=== PATIENT | female | born 1960 | race Caucasian/White ===

== ENCOUNTER 2020-05-05 10:31 | Emergency (ER) | payer OTHER, SELFPAY ==
--- NOTE | ~2020-05-05 | XR_ITS ---
XR ankle LT min 3V DATE: 05/05/2020 12:08 INDICATION: Pain and swelling for 2 weeks TECHNIQUE: 4 views COMPARISON: None FINDINGS: There is prominent plantar calcaneal enthesopathy. No periostitis or erosive change is asso ciated. No fracture or dislocation of the ankle or disruption of the ankle mortise is detected. IMPRESSION: Plantar calcaneal enthesopathy No fracture or dislocation or bone destruction of the ankle Reviewed, dictated and finalized at location B.
[2020-05-05 10:57] VITALS: BP 135/97; PULSE 88; RESP 16; TEMP 36.7; O2SAT 100
[2020-05-05 12:33] LABS: Uric Acid 4.6 mg/dL (2.5-7.5)
[2020-05-05 12:44] LABS: D Dimer 0.27 ug/mL (<0.48)
[2020-05-05 13:29] VITALS: BP 140/94; PULSE 76; RESP 16; TEMP 36.6; O2SAT 99
--- NOTE | 2020-05-05 20:00 | ED.EXTPRO ---
HPI - Extremity Problem General Chief complaint: Extremity Problem,Nontraumatic Stated complaint: L LEG SWELLING X FEW WEEKS Time Seen by Provider: 05/05/20 11:14 Source: patient Mode of arrival: ambulatory Limitations: no limitations History of Present Illness HPI Narrative: Patient with history of RA, varicosities presents with chief complaint of swelling to the lower left extremity. Patient states that she contacted her primary care regarding the swelling of her left lower BMP and she was instructed that she needs to come to the emergency department for DVT rule out. Patient reports that she is noticed increased swelling to the extremity after working long shifts where she is constantly on her feet. Patient denies current pain to her calf but states a week or 2 ago she did have cramping sensation to her calf to resolve. Patient denies any shortness of breath or chest pain. Patient has past history of DVT, PE. States when she elevates her extremity after work and applies cool compresses the swelling resolves but returns the next day after working. Related Data Allergies Allergy/AdvReac Type Severity Reaction Status Date / Time No Known Allergies Allergy Unknown Verified 03/10/07 11:12 Review of Systems Review of Systems: Narrative: CONSTITUTIONAL: Denies fever, chills, or sweats. EYES: Denies visual changes, redness, or discharge. ENT: Denies rhinorrhea, congestion, sore throat, or otalgia. CARDIOVASCULAR: Denies chest pain, palpitations, or edema. RESPIRATORY: Denies cough or dyspnea. GASTROINTESTINAL: Denies abdominal pain, nausea, vomiting, or diarrhea. GENITOURINARY: Denies dysuria or hematuria. SKIN: Denies rash or itching. MUSCULOSKELETAL: Reports left lower leg swelling denies back pain, joint pain, or myalgia. NEUROLOGIC: Denies headache, numbness, dizziness, or weakness. PSYCHIATRIC: Denies anxiety or depression. [facility] Family History Family History (Updated 09/12/15 @ 10:44 by DOCTOR UNKNOWN) Grandparent Hypertension Family history of elevated blood lipids Carcinoma of colon Other Family history of gastrointestinal disorder Family history of mental disorder Social History Social History Second hand tobacco smoke exposure: No Alcohol intake: current Exam Narrative: Exam Narrative: GENERAL: Well-appearing, well-nourished, and in no acute distress. HEAD: Normocephalic, atraumatic. EYES: PERRLA and EOMI. ENT: Nares clear, no rhinorrhea or epistaxis. Mucous membranes moist. Oropharynx without tonsillar hypertrophy exudate or other lesions. Bilateral TMs pearly ware nonbulging NECK: Supple. No adenopathy or masses CHEST: Clear to auscultation. No respiratory distress. No wheezes rales or rhonchi HEART: Regular rate and rhythm. EXTREMITIES: Normal range of motion. Mild edema to lower left ankle. There is no swelling, erythema or pain to left ankle. Homans sign negative. Varicosities noted to lower extremities. Areas not excessively warm or hot in occurrence with gout. SKIN: Warm, dry, no rash. NEURO: No focal deficits. Alert and oriented x3. PSYCH: Normal mood and affect. Course Vital Signs Vital signs: Vital Signs Temperature 98.0 F 05/05/20 10:57 Pulse Rate 88 05/05/20 10:57 Respiratory Rate 16 05/05/20 10:57 Blood Pressure 135/97 H 05/05/20 10:57 Pulse Oximetry 100 05/05/20 10:57 Temperature 98 F 05/05/20 13:29 Pulse Rate 76 05/05/20 13:29 Respiratory Rate 16 05/05/20 13:29 Blood Pressure 140/94 H 05/05/20 13:29 Pulse Oximetry 99 05/05/20 13:29 MDM - Extremity (Nontraumatic) Lab Data Labs: Lab Results 05/05/20 05/05/20 Range/Units 12:13 12:13 D-Dimer 0.27 (<0.48) ug/mL Uric Acid 4.6 (2.5-7.5) mg/dL Imaging Data Radiologist's impression: ITS Impressions Ankle X-Ray 05/05/20 12:18 IMPRESSION: Plantar calcaneal enthesopathy No fracture or dislocation or bone destruction of the ankle Discharge
== END 2020-05-05 13:30 | disposition home or self-care (01) ==
PROVIDERS: Physician Assistant; Emergency Provider Emergency Medicine; PCP Family Medicine
DX: M25.472 Effusion, left ankle (principal); M06.9 Rheumatoid arthritis, unspecified
CPT/HCPCS: 36415; 73610; 84550; 85380; 99283

== ENCOUNTER 2023-03-01 10:24 | Emergency (ER) | payer OTHER, SELFPAY ==
--- NOTE | ~2023-03-01 | US_ITS ---
EXAMINATION: US pelvic complete w TV DATE: 03/01/2023 12:38 INDICATION: Abnormal vaginal bleeding. TECHNIQUE: Multiple transabdominal and transvaginal sonographic images of the pelvis were obtained. COMPARISON: Ultrasound 06/21/2009 FINDINGS: TRANSABDOMINAL ULTRASOUND: The uterus measures 8.6 x 3.8 x 4.2 cm. There is no free fluid in the pelvis. TRANSVAGINAL ULTRASOUND: The endometrial complex measures 17 mm in thickness. The ovaries are not visualized. IMPRESSION: 1. Thickened endometrial complex. The differential diagnosis includes endometrial hyperplasia, polyp, and carcinoma. Biopsy is recommended. Reviewed, dictated and finalized at location L. IMPRESSION: 1. Thickened endometrial complex. The differential diagnosis includes endometri al hyperplasia, polyp, and carcinoma. Biopsy is recommended.
[2023-03-01 10:25] VITALS: BP 157/96; PULSE 102; RESP 16; TEMP 36.6; O2SAT 98
[2023-03-01 11:49] LABS: Basophils Absolute Auto 0.1 K/mm3 (0.0-0.1); Basophils Percent Auto 1.2 % (0.2-1.2); Eosinophils Absolute Auto 0.3 K/mm3 (0-0.3); Eosinophils Percent Auto 4.2 % (0-4.4); Hematocrit 45.3 % (37.0-47.0); Hemoglobin 14.8 g/dL (12.0-15.0); Immature Granulocyte Absolute 0.02 K/mm3 (0.00-0.031); Immature Granulocyte Percent A 0.3 % (0-0.5); Lymphocytes Percent Auto 18.9 % (18.3-44.2); Mean Corpuscular HGB Conc 32.7 g/dl (32-36); Mean Corpuscular Hemoglobin 30.5 pg (26-34); Mean Corpuscular Volume 93.2 fl (80-100); Mean Platelet Volume 9.1 fl (7.4-10.4); Monocytes Absolute Auto 0.7 K/mm3 (0.1-0.6); Monocytes Percent Auto 8.8 % (2.6-8.5); Neutrophils Absolute Auto 4.9 K/mm3 (1.3-6.7); Neutrophils Percent Auto 66.6 % (45.5-73.1); Platelet Count Result 282 k/mm3 (150-375); Red Blood Count 4.86 M/mm3 (4.2-5.4); Red Cell Distribution Width 13.4 % (11.5-14.5); White Blood Count 7.4 K/mm3 (4.5-10.0)
[2023-03-01 12:00] LABS: Alanine Aminotransferase 21 U/L (6-35); Albumin Level 4.3 g/dL (3.5-5.1); Alkaline Phosphatase 77 U/L (38-126); Anion Gap 5 mmol/L (8-16); Aspartate Amino Transferase 22 U/L (14-36); Bilirubin,Total 0.4 mg/dL (0.2-1.3); Blood Urea Nitrogen 21 mg/dL (7-17); Calcium 9.5 mg/dL (8.4-10.2); Carbon Dioxide 30 mmol/L (22-30); Chloride 105 mmol/L (98-107); Creatine Kinase 122 U/L (30-135); Estimated CRCL calculation 85 ml/min; Estimated Glomerular Filt Rate > 60; Glucose 100 mg/dL (65-110); Potassium 4.5 mmol/L (3.4-5.0); Sodium 140 mmol/L (137-145)
--- NOTE | 2023-03-01 12:53 | ED.FEMALEGU ---
HPI - Female Genitourinary General Chief complaint: Vaginal Bleeding Stated complaint: VAG BLEEDING Time Seen by Provider: 03/01/23 11:08 Source: patient and RN notes reviewed Mode of arrival: ambulatory Limitations: no limitations History of Present Illness HPI Narrative: This is a 62 year old female who presents for evaluation of heaving vaginal bleeding. PAtient states this morning she had heavy vaginal bleeding for 3 hours but it has currently subside. She reports having intermittent vaginal bleeding still. She has vaginal bleeding last month that lasted for half a day. She states sometimes she has vaginal bleeding once a month and sometimes she can go a couple of months without vaginal bleeding. She denies abdominal pain or dizziness. She reports chronic fatigue that is due to long work hours. She denies history of anemia or blood transfusion. She does report history of polymyositis that she had treatment for. Just prior to have vaginal bleeding today she had brief episode of right flank pain that has resolved. Her OBYN was Dr. Vega and she was last seen 6 years ago. Related Data Allergies Allergy/AdvReac Type Severity Reaction Status Date / Time No Known Allergies Allergy Unknown Verified 03/01/23 11:18 Review of Systems Constitutional: Constitutional: Reports fatigue and Denies weakness Cardiovascular: Cardiovascular: Denies syncope, Denies rapid heart rate, Denies irregular heart rhythm, Denies leg edema and Denies dyspnea Respiratory: Respiratory: Denies chest congestion, Denies hemoptysis, Denies excessive phlegm production and Denies dyspnea Gastrointestinal: Gastrointestinal: Denies abdominal pain, Denies hematochezia, Denies diarrhea and Denies vomiting Genitourinary: Genitourinary: Reports abnormal vaginal bleeding, Denies hematuria, Denies dysuria and Reports flank pain Musculoskeletal: Musculoskeletal: Denies joint swelling, Denies loss of height and Denies muscle weakness Neurologic: Denies syncope, Denies focal weakness and Denies weakness PMFSH Past Medical History Medical History (Updated 03/01/23 @ 13:12 by Essie Ovalle MD) Polymyositis Family History Family History (Updated 09/12/15 @ 10:44 by DOCTOR UNKNOWN) Grandparent Hypertension Family history of elevated blood lipids Carcinoma of colon Other Family history of gastrointestinal disorder Family history of mental disorder Social History Social History Second hand tobacco smoke exposure: No Alcohol intake: current Exam Const: General: no acute distress and alert Nutritional Appearance: well nourished Orientation/consciousness: patient oriented x3 HENMT: Head: normal to inspection Mouth: Yes Normal oral and palatal mucosa present, Yes lip normal and Yes moist mucous membranes Eyes: EOM: EOMs intact bilaterally Neck: Neck: normal visual inspection Chest: Chest palpation & inspection: normal inspection of the chest Resp: Effort & Inspection: normal respiratory effort Auscultation: clear to auscultation bilaterally Cardio: Rate: regular rate Rhythm: regular rhythm Heart sounds: no murmurs GI: GI Palp: Yes Soft to palpation, No Tenderness to palpation present (GI), No Guarding due to palpation present (GI) and No Rigid due to palpation Auscultation: normal bowel sounds : Speculum Exam - Cervix: Cervical os closed Other: small amount of dark blood oozing from cervix, no clots Back/Spine/Pelvis: Back: no CVA tenderness Skin: General skin exam: normal color Rashes: no rashes Wounds: no wounds Neuro: General: patient oriented x3, moves all extremities and CN's II-XI intact bilaterally Cranial nerves: Yes Nystagmus not present Speech: normal speech Gait exam (Neuro): Normal gait present Extrem: General: normal to inspection Psych: Appearance: grossly normal and well kempt Mental Status: mental status grossly normal Affect: normal
[2023-03-01 13:22] VITALS: PULSE 82; RESP 16; O2SAT 98
== END 2023-03-01 13:23 | disposition home or self-care (01) ==
PROVIDERS: Emergency Provider General Practice; PCP Family Medicine
DX: N93.8 Other specified abnormal uterine and vaginal bleeding (principal); M33.20 Polymyositis, organ involvement unspecified; R93.89 Abnormal findings on diagnostic imaging of other specified body structures
CPT/HCPCS: 36415; 76830; 76856; 80053; 81025; 82550; 85025; 99284

== ENCOUNTER 2023-06-22 08:23 | Outpatient (CLI) | payer OTHER, SELFPAY ==
[2023-06-22 11:43] LABS: Basophils Absolute Auto 0.1 K/mm3 (0.0-0.1); Basophils Percent Auto 1.2 % (0.2-1.2); Eosinophils Absolute Auto 0.3 K/mm3 (0-0.3); Eosinophils Percent Auto 5.9 % (0-4.4); Hematocrit 42.4 % (37.0-47.0); Hemoglobin 13.9 g/dL (12.0-15.0); Immature Granulocyte Absolute 0.01 K/mm3 (0.00-0.031); Immature Granulocyte Percent A 0.2 % (0-0.5); Lymphocytes Absolute Auto 1.34 K/mm3 (0.9-3.2); Lymphocytes Percent Auto 23.9 % (18.3-44.2); Mean Corpuscular HGB Conc 32.8 g/dl (32-36); Mean Corpuscular Hemoglobin 30.3 pg (26-34); Mean Corpuscular Volume 92.4 fl (80-100); Mean Platelet Volume 9.3 fl (7.4-10.4); Monocytes Absolute Auto 0.6 K/mm3 (0.1-0.6); Monocytes Percent Auto 11.1 % (2.6-8.5); Neutrophils Absolute Auto 3.2 K/mm3 (1.3-6.7); Neutrophils Percent Auto 57.7 % (45.5-73.1); Platelet Count Result 254 k/mm3 (150-375); Red Blood Count 4.59 M/mm3 (4.2-5.4); Red Cell Distribution Width 13.2 % (11.5-14.5); White Blood Count 5.6 K/mm3 (4.5-10.0)
[2023-06-22 11:45] LABS: INR 0.9; Prothrombin Time 12.2 Seconds (11.1-14.7)
[2023-06-22 11:46] LABS: Partial Thromboplastin Time 27.5 SECONDS (22.3-36.8)
[2023-06-22 11:52] LABS: Alanine Aminotransferase 22 U/L (6-35); Albumin Level 4.3 g/dL (3.5-5.1); Alkaline Phosphatase 83 U/L (38-126); Anion Gap 3 mmol/L (8-16); Aspartate Amino Transferase 33 U/L (14-36); Bilirubin,Total 0.6 mg/dL (0.2-1.3); Blood Urea Nitrogen 21 mg/dL (7-17); Calcium 9.1 mg/dL (8.4-10.2); Carbon Dioxide 27 mmol/L (22-30); Chloride 105 mmol/L (98-107); Estimated Glomerular Filt Rate > 60; Glucose 111 mg/dL (65-110); Magnesium 2.2 mg/dL (1.6-2.3); Potassium 4.3 mmol/L (3.4-5.0); Sodium 135 mmol/L (137-145)
== END 2023-06-22 08:24 | disposition home or self-care (01) ==
PROVIDERS: PCP Family Medicine
DX: C54.1 Malignant neoplasm of endometrium (principal)
CPT/HCPCS: 36415; 80053; 83735; 85025; 85610; 85730

== ENCOUNTER 2023-07-27 08:07 | Outpatient (CLI) | payer OTHER, SELFPAY ==
[2023-07-27 13:47] LABS: Basophils Absolute Auto 0.1 K/mm3 (0.0-0.1); Basophils Percent Auto 1.5 % (0.2-1.2); Eosinophils Absolute Auto 0.2 K/mm3 (0-0.3); Eosinophils Percent Auto 3.3 % (0-4.4); Hematocrit 44.1 % (37.0-47.0); Hemoglobin 13.9 g/dL (12.0-15.0); Immature Granulocyte Absolute 0.02 K/mm3 (0.00-0.031); Immature Granulocyte Percent A 0.4 % (0-0.5); Lymphocytes Absolute Auto 1.34 K/mm3 (0.9-3.2); Lymphocytes Percent Auto 27.8 % (18.3-44.2); Mean Corpuscular HGB Conc 31.5 g/dl (32-36); Mean Platelet Volume 9.8 fl (7.4-10.4); Monocytes Absolute Auto 0.6 K/mm3 (0.1-0.6); Monocytes Percent Auto 13.1 % (2.6-8.5); Neutrophils Absolute Auto 2.6 K/mm3 (1.3-6.7); Neutrophils Percent Auto 53.9 % (45.5-73.1); Platelet Count Result 244 k/mm3 (150-375); Red Blood Count 4.64 M/mm3 (4.2-5.4); Red Cell Distribution Width 14.1 % (11.5-14.5); White Blood Count 4.8 K/mm3 (4.5-10.0)
[2023-07-27 13:51] LABS: Alanine Aminotransferase 28 U/L (6-35); Albumin Level 4.4 g/dL (3.5-5.1); Alkaline Phosphatase 90 U/L (38-126); Anion Gap 5 mmol/L (8-16); Aspartate Amino Transferase 30 U/L (14-36); Bilirubin,Total 0.6 mg/dL (0.2-1.3); Blood Urea Nitrogen 15 mg/dL (7-17); Calcium 9.5 mg/dL (8.4-10.2); Carbon Dioxide 27 mmol/L (22-30); Chloride 105 mmol/L (98-107); Estimated Glomerular Filt Rate > 60; Glucose 101 mg/dL (65-110); Magnesium 2.4 mg/dL (1.6-2.3); Potassium 4.2 mmol/L (3.4-5.0); Sodium 137 mmol/L (137-145)
[2023-08-02 07:18] LABS: CA-125 15 U/mL (<35)
== END 2023-07-27 08:08 | disposition home or self-care (01) ==
LOC: ANHGOSHLAB 08:11
PROVIDERS: PCP Family Medicine
DX: C54.1 Malignant neoplasm of endometrium (principal)
CPT/HCPCS: 36415; 80053; 83735; 85025; 86304

== ENCOUNTER 2023-08-17 08:18 | Outpatient (CLI) | payer OTHER, SELFPAY ==
[2023-08-17 19:06] LABS: Basophils Absolute Auto 0.1 K/mm3 (0.0-0.1); Basophils Percent Auto 1.4 % (0.2-1.2); Eosinophils Absolute Auto 0.1 K/mm3 (0-0.3); Eosinophils Percent Auto 3.1 % (0-4.4); Hematocrit 42.5 % (37.0-47.0); Hemoglobin 13.6 g/dL (12.0-15.0); Immature Granulocyte Absolute 0.01 K/mm3 (0.00-0.031); Immature Granulocyte Percent A 0.2 % (0-0.5); Lymphocytes Absolute Auto 1.25 K/mm3 (0.9-3.2); Lymphocytes Percent Auto 29.8 % (18.3-44.2); Mean Corpuscular Hemoglobin 30.4 pg (26-34); Mean Corpuscular Volume 94.9 fl (80-100); Mean Platelet Volume 9.4 fl (7.4-10.4); Monocytes Absolute Auto 0.6 K/mm3 (0.1-0.6); Monocytes Percent Auto 15.3 % (2.6-8.5); Neutrophils Absolute Auto 2.1 K/mm3 (1.3-6.7); Neutrophils Percent Auto 50.2 % (45.5-73.1); Platelet Count Result 228 k/mm3 (150-375); Red Blood Count 4.48 M/mm3 (4.2-5.4); Red Cell Distribution Width 14.6 % (11.5-14.5); White Blood Count 4.2 K/mm3 (4.5-10.0)
[2023-08-17 20:21] LABS: Alanine Aminotransferase 27 U/L (6-35); Albumin Level 4.2 g/dL (3.5-5.1); Alkaline Phosphatase 94 U/L (38-126); Anion Gap 7 mmol/L (8-16); Aspartate Amino Transferase 28 U/L (14-36); Bilirubin,Total 0.6 mg/dL (0.2-1.3); Blood Urea Nitrogen 13 mg/dL (7-17); Calcium 9.5 mg/dL (8.4-10.2); Carbon Dioxide 27 mmol/L (22-30); Chloride 104 mmol/L (98-107); Estimated Glomerular Filt Rate > 60; Glucose 105 mg/dL (65-110); Magnesium 2.3 mg/dL (1.6-2.3); Potassium 4.7 mmol/L (3.4-5.0); Sodium 138 mmol/L (137-145)
[2023-08-23 02:01] LABS: CA-125 15 U/mL (<35)
== END 2023-08-17 08:19 | disposition home or self-care (01) ==
LOC: ANHGOSHLAB 08:23
PROVIDERS: PCP Family Medicine
DX: C54.1 Malignant neoplasm of endometrium (principal)
CPT/HCPCS: 36415; 80053; 83735; 85025; 86304

== ENCOUNTER 2023-09-07 08:15 | Outpatient (CLI) | payer OTHER, SELFPAY ==
[2023-09-07 12:33] LABS: Basophils Absolute Auto 0.1 K/mm3 (0.0-0.1); Basophils Percent Auto 1.5 % (0.2-1.2); Eosinophils Absolute Auto 0.1 K/mm3 (0-0.3); Eosinophils Percent Auto 2.5 % (0-4.4); Hematocrit 40.3 % (37.0-47.0); Hemoglobin 13.1 g/dL (12.0-15.0); Immature Granulocyte Absolute 0.01 K/mm3 (0.00-0.031); Immature Granulocyte Percent A 0.3 % (0-0.5); Lymphocytes Absolute Auto 1.28 K/mm3 (0.9-3.2); Lymphocytes Percent Auto 32.2 % (18.3-44.2); Mean Corpuscular HGB Conc 32.5 g/dl (32-36); Mean Corpuscular Hemoglobin 30.8 pg (26-34); Mean Corpuscular Volume 94.8 fl (80-100); Mean Platelet Volume 9.6 fl (7.4-10.4); Monocytes Absolute Auto 0.6 K/mm3 (0.1-0.6); Monocytes Percent Auto 14.6 % (2.6-8.5); Neutrophils Percent Auto 48.9 % (45.5-73.1); Platelet Count Result 246 k/mm3 (150-375); Red Blood Count 4.25 M/mm3 (4.2-5.4); Red Cell Distribution Width 15.6 % (11.5-14.5)
[2023-09-07 12:52] LABS: Alanine Aminotransferase 26 U/L (6-35); Albumin Level 4.1 g/dL (3.5-5.1); Alkaline Phosphatase 98 U/L (38-126); Anion Gap 7 mmol/L (8-16); Aspartate Amino Transferase 32 U/L (14-36); Bilirubin,Total 0.5 mg/dL (0.2-1.3); Blood Urea Nitrogen 14 mg/dL (7-17); Calcium 9.5 mg/dL (8.4-10.2); Carbon Dioxide 27 mmol/L (22-30); Chloride 105 mmol/L (98-107); Estimated Glomerular Filt Rate > 60; Glucose 109 mg/dL (65-110); Magnesium 2.2 mg/dL (1.6-2.3); Potassium 4.5 mmol/L (3.4-5.0); Sodium 139 mmol/L (137-145)
[2023-09-10 04:44] LABS: CA-125 14 U/mL (<35)
== END 2023-09-07 08:16 | disposition home or self-care (01) ==
PROVIDERS: PCP Family Medicine
DX: C54.1 Malignant neoplasm of endometrium (principal)
CPT/HCPCS: 36415; 80053; 83735; 85025; 86304

== ENCOUNTER 2023-10-05 08:03 | Outpatient (CLI) | payer OTHER, SELFPAY ==
[2023-10-05 20:07] LABS: Basophils Absolute Auto 0.1 K/mm3 (0.0-0.1); Basophils Percent Auto 1.6 % (0.2-1.2); Eosinophils Absolute Auto 0.2 K/mm3 (0-0.3); Eosinophils Percent Auto 4.9 % (0-4.4); Hematocrit 42.6 % (37.0-47.0); Hemoglobin 13.3 g/dL (12.0-15.0); Immature Granulocyte Absolute 0.01 K/mm3 (0.00-0.031); Immature Granulocyte Percent A 0.2 % (0-0.5); Lymphocytes Absolute Auto 1.39 K/mm3 (0.9-3.2); Lymphocytes Percent Auto 28.3 % (18.3-44.2); Mean Corpuscular HGB Conc 31.2 g/dl (32-36); Mean Corpuscular Hemoglobin 31.2 pg (26-34); Mean Platelet Volume 9.7 fl (7.4-10.4); Monocytes Absolute Auto 0.6 K/mm3 (0.1-0.6); Monocytes Percent Auto 12.4 % (2.6-8.5); Neutrophils Absolute Auto 2.6 K/mm3 (1.3-6.7); Neutrophils Percent Auto 52.6 % (45.5-73.1); Platelet Count Result 204 k/mm3 (150-375); Red Blood Count 4.26 M/mm3 (4.2-5.4); White Blood Count 4.9 K/mm3 (4.5-10.0)
[2023-10-05 21:44] LABS: Alanine Aminotransferase 35 U/L (6-35); Albumin Level 4.2 g/dL (3.5-5.1); Alkaline Phosphatase 95 U/L (38-126); Anion Gap 9 mmol/L (8-16); Aspartate Amino Transferase 40 U/L (14-36); Bilirubin,Total 0.4 mg/dL (0.2-1.3); Blood Urea Nitrogen 22 mg/dL (7-17); Calcium 9.5 mg/dL (8.4-10.2); Carbon Dioxide 26 mmol/L (22-30); Chloride 101 mmol/L (98-107); Estimated Glomerular Filt Rate > 60; Glucose 90 mg/dL (65-110); Magnesium 2.3 mg/dL (1.6-2.3); Potassium 4.5 mmol/L (3.4-5.0); Sodium 136 mmol/L (137-145)
[2023-10-08 01:53] LABS: CA-125 12 U/mL (<35)
== END 2023-10-05 08:04 | disposition home or self-care (01) ==
LOC: ANHGOSHLAB 08:06
PROVIDERS: PCP Family Medicine
DX: C54.1 Malignant neoplasm of endometrium (principal)
CPT/HCPCS: 36415; 80053; 83735; 85025; 86304

== ENCOUNTER 2023-10-26 08:07 | Outpatient (CLI) | payer OTHER, SELFPAY ==
[2023-10-26 14:04] LABS: Eosinophils Absolute Auto 0.2 K/mm3 (0-0.3); Eosinophils Percent Auto 3.8 % (0-4.4); Hematocrit 38.9 % (37.0-47.0); Hemoglobin 12.3 g/dL (12.0-15.0); Immature Granulocyte Absolute 0.01 K/mm3 (0.00-0.031); Immature Granulocyte Percent A 0.3 % (0-0.5); Mean Corpuscular HGB Conc 31.6 g/dl (32-36); Mean Corpuscular Hemoglobin 31.5 pg (26-34); Mean Corpuscular Volume 99.7 fl (80-100); Mean Platelet Volume 9.8 fl (7.4-10.4); Monocytes Absolute Auto 0.7 K/mm3 (0.1-0.6); Monocytes Percent Auto 17.3 % (2.6-8.5); Neutrophils Absolute Auto 1.8 K/mm3 (1.3-6.7); Neutrophils Percent Auto 44.6 % (45.5-73.1); Platelet Count Result 210 k/mm3 (150-375); Red Cell Distribution Width 15.9 % (11.5-14.5); White Blood Count 3.9 K/mm3 (4.5-10.0)
[2023-10-26 15:34] LABS: Alanine Aminotransferase 28 U/L (6-35); Albumin Level 3.8 g/dL (3.5-5.1); Alkaline Phosphatase 89 U/L (38-126); Anion Gap 5 mmol/L (8-16); Aspartate Amino Transferase 36 U/L (14-36); Bilirubin,Total 0.5 mg/dL (0.2-1.3); Blood Urea Nitrogen 14 mg/dL (7-17); Calcium 9.1 mg/dL (8.4-10.2); Carbon Dioxide 26 mmol/L (22-30); Chloride 106 mmol/L (98-107); Estimated Glomerular Filt Rate > 60; Glucose 99 mg/dL (65-110); Magnesium 2.1 mg/dL (1.6-2.3); Potassium 4.2 mmol/L (3.4-5.0); Sodium 137 mmol/L (137-145)
[2023-10-29 02:57] LABS: CA-125 14 U/mL (<35)
== END 2023-10-26 08:08 | disposition home or self-care (01) ==
LOC: ANHGOSHLAB 08:11
PROVIDERS: PCP Family Medicine
DX: C54.1 Malignant neoplasm of endometrium (principal)
CPT/HCPCS: 36415; 80053; 83735; 85025; 86304

== ENCOUNTER 2023-12-02 08:17 | Outpatient (CLI) | payer OTHER, SELFPAY ==
[2023-12-02 18:55] LABS: Basophils Absolute Auto 0.1 K/mm3 (0.0-0.1); Basophils Percent Auto 1.2 % (0.2-1.2); Eosinophils Absolute Auto 0.3 K/mm3 (0-0.3); Eosinophils Percent Auto 4.9 % (0-4.4); Hematocrit 41.4 % (37.0-47.0); Hemoglobin 13.4 g/dL (12.0-15.0); Immature Granulocyte Absolute 0.01 K/mm3 (0.00-0.031); Immature Granulocyte Percent A 0.2 % (0-0.5); Lymphocytes Absolute Auto 1.46 K/mm3 (0.9-3.2); Lymphocytes Percent Auto 28.9 % (18.3-44.2); Mean Corpuscular HGB Conc 32.4 g/dl (32-36); Mean Corpuscular Hemoglobin 32.5 pg (26-34); Mean Corpuscular Volume 100.5 fl (80-100); Mean Platelet Volume 9.6 fl (7.4-10.4); Monocytes Absolute Auto 0.7 K/mm3 (0.1-0.6); Monocytes Percent Auto 12.8 % (2.6-8.5); Neutrophils Absolute Auto 2.6 K/mm3 (1.3-6.7); Platelet Count Result 254 k/mm3 (150-375); Red Blood Count 4.12 M/mm3 (4.2-5.4); Red Cell Distribution Width 14.4 % (11.5-14.5); White Blood Count 5.1 K/mm3 (4.5-10.0)
== END 2023-12-02 08:18 | disposition home or self-care (01) ==
LOC: ANHGOSHLAB 08:20
PROVIDERS: PCP Family Medicine
DX: C54.1 Malignant neoplasm of endometrium (principal)
CPT/HCPCS: 36415; 85025

== ENCOUNTER 2024-01-04 08:23 | Outpatient (CLI) | payer OTHER, SELFPAY ==
[2024-01-04 12:14] LABS: Basophils Absolute Auto 0.1 K/mm3 (0.0-0.1); Basophils Percent Auto 0.8 % (0.2-1.2); Eosinophils Absolute Auto 0.7 K/mm3 (0-0.3); Eosinophils Percent Auto 11.2 % (0-4.4); Hematocrit 41.8 % (37.0-47.0); Hemoglobin 13.6 g/dL (12.0-15.0); Immature Granulocyte Absolute 0.01 K/mm3 (0.00-0.031); Immature Granulocyte Percent A 0.2 % (0-0.5); Lymphocytes Absolute Auto 0.76 K/mm3 (0.9-3.2); Lymphocytes Percent Auto 12.7 % (18.3-44.2); Mean Corpuscular HGB Conc 32.5 g/dl (32-36); Mean Corpuscular Hemoglobin 32.1 pg (26-34); Mean Corpuscular Volume 98.6 fl (80-100); Mean Platelet Volume 9.7 fl (7.4-10.4); Monocytes Absolute Auto 0.7 K/mm3 (0.1-0.6); Monocytes Percent Auto 11.5 % (2.6-8.5); Neutrophils Absolute Auto 3.8 K/mm3 (1.3-6.7); Neutrophils Percent Auto 63.6 % (45.5-73.1); Platelet Count Result 231 k/mm3 (150-375); Red Blood Count 4.24 M/mm3 (4.2-5.4); Red Cell Distribution Width 13.2 % (11.5-14.5)
[2024-01-04 12:38] LABS: Alanine Aminotransferase 40 U/L (6-35); Albumin Level 4.1 g/dL (3.5-5.1); Alkaline Phosphatase 82 U/L (38-126); Anion Gap 3 mmol/L (4-12); Aspartate Amino Transferase 37 U/L (14-36); Bilirubin,Total 0.3 mg/dL (0.2-1.3); Blood Urea Nitrogen 10 mg/dL (7-17); Calcium 9.7 mg/dL (8.4-10.2); Carbon Dioxide 28 mmol/L (22-30); Chloride 106 mmol/L (98-107); Estimated Glomerular Filt Rate > 60; Glucose 102 mg/dL (65-110); Magnesium 2.1 mg/dL (1.6-2.3); Potassium 4.1 mmol/L (3.4-5.0); Sodium 137 mmol/L (137-145)
[2024-01-07 03:06] LABS: CA-125 9 U/mL (<35)
== END 2024-01-04 08:24 | disposition home or self-care (01) ==
LOC: ANHGOSHLAB 08:25
PROVIDERS: PCP Family Medicine
DX: Z51.11 Encounter for antineoplastic chemotherapy (principal); C54.1 Malignant neoplasm of endometrium
CPT/HCPCS: 36415; 80053; 83735; 85025; 86304

== ENCOUNTER 2024-02-21 06:10 | Day surgery (SDC) | payer OTHER, SELFPAY ==
[2024-02-21] VITALS (14 sets, daily range): BP systolic 106–152; BP diastolic 59–94; PULSE 75–97; RESP 10–18; TEMP 36.6–37.1; O2SAT 96–100
--- NOTE | ~2024-02-21 | CT_ITS ---
EXAMINATION: CT abdomen pelvis w con DATE: 02/21/2024 08:09 INDICATION: Abdominal pain, nausea and vomiting TECHNIQUE: Computed tomography (CT) of the abdomen and pelvis was performed with 100 CC Omnipaque 350 intravenous contrast. Automated exposure control and iterative reconstruction technique were employe d. Exam dose: 1154.41 mGy-cm total exam DLP. COMPARISON: 03/01/2023 pelvic ultrasound examination FINDINGS: Minimal dependent atelectasis at the bases of the lower lobes, minimal atelectasis at the b ase of the lingula. No consolidation at the included lung bases. Normal heart size. Coronary artery calcification. Small sliding hiatal hernia. The liver, gallbladder, bile ducts, spleen, pancreas, pancreatic duct, and adrenal glands and right k idney appear unremarkable. Approximately 10.5 mm hypoenhancing lesion of the posterolateral aspect of the lower pole of the left kidney with attenuation of approximately 37 Hounsfield units. This is indeterminate. No prior examin ations are available for comparison. No urinary tract calculus or hydroureteronephrosis. Status post hysterectomy. The urinary bladder is unremarkable. There is atherosclerotic calcification but normal caliber of the abdominal aorta. No intraperitoneal or retroperitoneal or pelvic mass lesion or adenopathy or ascites is noted. There are multiple diverticula of the sigmoid and descending colon as well as splenic flexure, transv erse colon, hepatic flexure. The appendix measures up to approximately 10.1 mm diameter, with thickening of the wall and periappen diceal mild fat stranding. The findings are consistent with acute appendicitis. Small fat-containing umbilical hernia. There are subcortical cysts and degenerative spurring of the left femoral head consistent with osteoa rthritis. Some joint space narrowing of both hips, left greater than right. Degenerative spurring of the lower thoracic and to a lesser extent lumbar spine. No suspicious osteolytic or osteoblastic lesions. IMPRESSION: Acute appendicitis Diverticulosis of the colon Indeterminate 10.5 mm lesion of lower pole of left kidney; consider MR renal examination or six-month follow-up CT abdomen examination without and with IV contrast material, unless prior CT abdomen exam inations are available for comparison. Small sliding hiatal hernia Status post hysterectomy Reviewed, dictated and finalized at [facility]. Reviewed, dictated and finalized at [facility]. IMPRESSION: Acute appendicitis Diverticulosis of the colon Indeterminate 10.5 mm lesion of lower pole of left kidney; consider MR renal ex amination or six-month follow-up CT abdomen examination without and with IV con trast material, unless prior CT abdomen examinations are available for comparis on. Small sliding hiatal hernia Status post hysterectomy
[2024-02-21 06:33] LABS: Basophils Absolute Auto 0.1 K/mm3 (0.0-0.1); Basophils Percent Auto 0.5 % (0.2-1.2); Eosinophils Absolute Auto 0.4 K/mm3 (0-0.3); Eosinophils Percent Auto 3.6 % (0-4.4); Hematocrit 42.8 % (37.0-47.0); Hemoglobin 14.1 g/dL (12.0-15.0); Immature Granulocyte Absolute 0.03 K/mm3 (0.00-0.031); Immature Granulocyte Percent A 0.3 % (0-0.5); Lymphocytes Absolute Auto 0.83 K/mm3 (0.9-3.2); Lymphocytes Percent Auto 7.6 % (18.3-44.2); Mean Corpuscular HGB Conc 32.9 g/dl (32-36); Mean Corpuscular Hemoglobin 31.3 pg (26-34); Mean Corpuscular Volume 95.1 fl (80-100); Mean Platelet Volume 9.3 fl (7.4-10.4); Monocytes Absolute Auto 0.8 K/mm3 (0.1-0.6); Monocytes Percent Auto 6.9 % (2.6-8.5); Neutrophils Absolute Auto 8.9 K/mm3 (1.3-6.7); Neutrophils Percent Auto 81.1 % (45.5-73.1); Platelet Count Result 229 k/mm3 (150-375); Red Cell Distribution Width 13.2 % (11.5-14.5)
[2024-02-21 06:40] LABS: Appearance Urine Clear (Clear); Bacteria Urine None Seen /hpf; Bilirubin Urine Negative (Negative); Blood Urine Negative (Negative); Color Urine Yellow (Yellow); Glucose Urine UA Negative (Negative); Ketones Urine Trace mg/dL (Negative); Leukocyte Esterase Ur Trace LEU/UL (Negative); Nitrate Urine Negative (Negative); Non Pathogenic Casts 0-2; Protein Urine Negative (Negative); RBC Urine 0-2 /hpf (0-2); Specific Grav Ur 1.024 (1.001-1.035); Squamous Epithelial Cell Urine Occasional /hpf (Few); Urobilinogen Urine 0.2 mg/dL (<2.0); WBC Urine 0-5 /hpf (0-3)
[2024-02-21 06:58] LABS: Add Urine Microscopic? YES
[2024-02-21] MEDS: ONDANSETRON INJ 4 MG/2 ML VIAL IV PUSH (07:04)
--- NOTE | 2024-02-21 07:32 | PC.NURSE ---
Assumed care of pt. Pt c/o right lower quad abd pain. Tender on palpation. Rates pain 10. States does not like pain meds. Bowel sounds diminished in all quads.
--- NOTE | 2024-02-21 07:39 | ED.ABDPAIN ---
HPI - Abdominal Pain General Chief Complaint: Abdominal Pain Stated Complaint: R flank pain, n/v Time Seen by Provider: 02/21/24 06:58 History of Present Illness HPI narrative: Patient with history of endometrial cancer being treated with radiation presents here with nausea vomiting and abdominal pain such into the right side over the past day. Cannot keep anything down. Did have 1 episode of diarrhea earlier. Related Data Home Medications Medication Instructions Recorded Confirmed ibuprofen 200 mg tablet (Advil) 200 mg PO BID 04/07/23 04/10/23 Allergies Allergy/AdvReac Type Severity Reaction Status Date / Time No Known Allergies Allergy Unknown Verified 02/21/24 06:43 Review of Systems Review of Systems: All systems reviewed & are unremarkable except as noted in HPI and below PMFSH Past Medical History Medical History Arthritis Polymyositis Surgical History Surgical History H/O right wrist surgery Family History Family History Grandparent Hypertension Family history of elevated blood lipids Carcinoma of colon Other Anxiety Family history of gastrointestinal disorder Family history of mental disorder Social History Social History Smoking status: Current every day smoker Second hand tobacco smoke exposure: No Alcohol intake: current Substance use: never Substance use type: does not use Lack of Transportation: No Lack of Food: Never True Current Housing: I Have Housing Concerned About Future Housing: No Difficulty Paying Gas/Electric Bills: No Difficulty Paying for Meds: No Currently Unemployed: No Education: High School Diploma/GED Difficulty w/ Childcare or Family Care: No Exam Narrative: EXAMINATION OF ORGAN SYSTEMS/BODY AREAS: Constitutional: Vital signs per nursing GENERAL:[No acute distress, non-toxic appearing.] HEAD: Normal with no signs of head trauma. EYES: EOMI, conjunctiva normal ENT: Hearing grossly intact LUNGS: Nonlabored breathing. HEART: [Regular rate and rhythm] ABD: [Soft], [tender to palpation] right upper and lower abdomen EXT: Normal range of motion SKIN: [No rashes or lesions.] NEURO: [Alert and oriented x 3. No gross focal sensory or strength deficits.] PSYCH: Normal affect Course Vital Signs Vital signs: Vital Signs Temperature 97.8 F 02/21/24 06:23 Pulse Rate 97 02/21/24 06:23 Respiratory Rate 16 02/21/24 06:23 Blood Pressure 152/94 H 02/21/24 06:23 Pulse Oximetry 97 02/21/24 06:23 Oxygen Delivery Room Air 02/21/24 06:23 Temperature 98.1 F 02/21/24 07:33 Pulse Rate 89 02/21/24 08:34 Respiratory Rate 18 02/21/24 08:34 Blood Pressure 141/82 H 02/21/24 08:34 Pulse Oximetry 98 02/21/24 08:34 Oxygen Delivery Room Air 02/21/24 06:23 MDM - Abdominal Pain MDM Narrative Medical decision making narrative: 1) Differential diagnosis: cholecystitis, appendicitis, SBO, gastroenteritis 2) Comorbidities: Endometrial cancer after radiation and chemo 3) External notes reviewed: [facility] notes 4) History sources independently obtained from: Patient, family member at bedside, patient's Gyne Onc Dr Bowen 5) Discussion of management with: General surgery, patient's bi specialist-onc 6) Independent interpretation of: [] 7) Diagnostic tests or therapies considered but not ordered: [] 8) Social determinants of health: [] 9) Shared decision making: [] Patient presenting with nausea vomiting and right-sided abdominal pain, she did have treatment for endometrial cancer, my differential diagnosis includes cholecystitis, appendicitis, SBO, gastroenteritis. She is given IV fluids, Zofran On exam she is tender to the right upper and lower quadrant, labs notable for elevat
[2024-02-21 07:56] LABS: Alanine Aminotransferase 24 U/L (6-35); Albumin Level 4.4 g/dL (3.5-5.1); Alkaline Phosphatase 96 U/L (38-126); Anion Gap 7 mmol/L (4-12); Aspartate Amino Transferase 23 U/L (14-36); Bilirubin,Total 0.6 mg/dL (0.2-1.3); Blood Urea Nitrogen 14 mg/dL (7-17); Calcium 9.2 mg/dL (8.4-10.2); Carbon Dioxide 21 mmol/L (22-30); Chloride 109 mmol/L (98-107); Estimated CRCL calculation 80 ml/min; Estimated Glomerular Filt Rate > 60; Glucose 142 mg/dL (65-110); Lipase 67 U/L (23-300); Potassium 4.3 mmol/L (3.4-5.0); Sodium 137 mmol/L (137-145)
--- NOTE | 2024-02-21 08:38 | PC.NURSE ---
Pt ambulated to bathroom with steady gait. Continue to wait on CT results
[2024-02-21] MEDS: PIPERACILLN/TAZ 3.375GM/NS50ML 3.375 GM/50 ML BAG IVPB (09:09)
--- NOTE | 2024-02-21 09:26 | PC.NURSE ---
Pt informed of surgery at 1100. All clothing removed. Surgical MARBLE CUTTER OPERATOR at bedside discussing POC with pt & pt sister.
--- NOTE | 2024-02-21 09:53 | PM.IMHP ---
H&P: HPI History of Present Illness Date/Time: 02/21/24 09:53 Chief Complaint: RLQ abdominal pain Narrative: This is a 63-year-old woman with a history of endometrial cancer s/p total abdominal hysterectomy in May 2023 and treatment of chemotherapy and radiation therapy. She presented to the ER this morning with RLQ abdominal pain that began yesterday evening. The pain became worse throughout the night and she was unable to sleep. She had associated nausea and vomiting. No fevers or chills. She reports diarrhea that has been a regular issues since radiation therapy. In the ED, labs showed a white blood cell count of 11,000. CT scan of the abdomen and pelvis showed acute uncomplicated appendicitis. Incidentally noted is an indeterminate 10.5 mm left kidney lesion. Our service was consulted by the ED physician for acute appendicitis and she is now seen in the ER. In regards to her endometrial cancer, she had 6 rounds of chemotherapy that ended in October. She has had 5 treatments of external radiation, and then began internal radiation with three treatments and the last one was about 2-3 weeks ago. Her surgical oncologist is Dr. Martínez at [facility]. Review of Systems Review of Systems: All systems reviewed & are unremarkable except as noted in HPI and below PMFSH Past Medical History Medical History Arthritis History of endometrial cancer Polymyositis Surgical History Surgical History H/O right wrist surgery History of total abdominal hysterectomy and bilateral salpingo-oophorectomy Family History Family History Grandparent Hypertension Family history of elevated blood lipids Carcinoma of colon Other Anxiety Family history of gastrointestinal disorder Family history of mental disorder Social History Social History Smoking status: Current every day smoker Second hand tobacco smoke exposure: No Alcohol intake: current Substance use: never Substance use type: does not use Lack of Transportation: No Lack of Food: Never True Current Housing: I Have Housing Concerned About Future Housing: No Difficulty Paying Gas/Electric Bills: No Difficulty Paying for Meds: No Currently Unemployed: No Education: High School Diploma/GED Difficulty w/ Childcare or Family Care: No Meds Home Medications and Allergies Home Medications Medication Instructions Recorded Confirmed Type ibuprofen 200 mg tablet (Advil) 200 mg PO BID 04/07/23 04/10/23 History Allergies Allergy/AdvReac Type Severity Reaction Status Date / Time No Known Allergies Allergy Unknown Verified 02/21/24 10:09 Vital Signs Vital Signs - 24 hr 02/21/24 06:23 02/21/24 06:41 02/21/24 07:33 Temperature 97.8 F 98.1 F Pulse Rate 97 91 83 Respiratory Rate 16 17 18 Blood Pressure 152/94 H 143/90 H 138/82 Pulse Oximetry 97 96 100 Oxygen Delivery Room Air 02/21/24 08:34 02/21/24 09:15 02/21/24 09:49 Temperature 98.7 F 98.6 F Pulse Rate 89 85 75 Respiratory Rate 18 16 18 Blood Pressure 141/82 H 136/83 130/83 Pulse Oximetry 98 99 99 Oxygen Delivery Exam Const: General: comfortable and no acute distress Nutritional Appearance: overweight Orientation/consciousness: patient oriented x3 HENMT: Head: normocephalic and atraumatic Ears: hearing grossly normal bilaterally Mouth: Yes moist mucous membranes Eyes: General: appearance normal, both eyes and all related structures Pupils: Equal, round and reactive pupils present Neck: Neck: normal visual inspection and full ROM Resp: Effort & Inspection: no respiratory distress Auscultation: clear to auscultation bilaterally Cardio: Rate: regular rate Rhythm: regular rhythm Heart sounds: S1 normal heart sound present and S2 normal heart s
[2024-02-21] MEDS: LACTATED RINGERS 1,000 ML 30 ML IV CONT ×2 (10:00→11:39)
--- NOTE | 2024-02-21 10:22 | WPDHPUPDATE1 ---
History and Physical Update Update Date/Time: 02/21/24 10:22 History and Physical has been reviewed, including an updated exam of the patient. There are NO changes in the patient's condition. Risks, benefits, and alternatives have been discussed and questions answered. Patient agrees to proceed with procedure.
--- NOTE | 2024-02-21 10:43 | WPDANESEPPF ---
Anes - Initial Pre Proc Eval Procedure: Operation Date: 02/21/24 11:00 Proposed Procedures p Laparoscopic Appendectomy - Cristofer Son DO Date/Time: 02/21/24 10:43 Surgeon: Cristofer Son DO Pre Op Diagnosis: R flank pain, n/v Patient Data Age: 63 Gender: F Height: 1.68 m Weight: 107.2 kg Last Vital Signs Temp 98.2 F 02/21/24 09:50 Pulse 84 02/21/24 09:50 Resp 18 02/21/24 09:50 BP 142/79 H 02/21/24 09:50 Pulse Ox 99 02/21/24 09:50 O2 Del Method Room Air 02/21/24 09:50 Allergies Allergy/AdvReac Type Severity Reaction Status Date / Time No Known Allergies Allergy Unknown Verified 02/21/24 10:09 Home Medications Medication Instructions Recorded Confirmed Type ibuprofen 200 mg tablet (Advil) 200 mg PO BID 04/07/23 04/10/23 History Laboratory Tests 02/21/24 02/21/24 06:22 06:23 WBC 11.0 H K/mm3 (4.5-10.0) RBC 4.50 M/mm3 (4.2-5.4) Hgb 14.1 g/dL (12.0-15.0) Hct 42.8 % (37.0-47.0) MCV 95.1 fl (80-100) MCH 31.3 pg (26-34) MCHC 32.9 g/dl (32-36) RDW 13.2 % (11.5-14.5) Plt Count 229 k/mm3 (150-375) MPV 9.3 fl (7.4-10.4) Immature Gran % (Auto) 0.3 % (0-0.5) Neut % (Auto) 81.1 H % (45.5-73.1) Lymph % (Auto) 7.6 L % (18.3-44.2) [place] % (Auto) 6.9 % (2.6-8.5) Eos % (Auto) 3.6 % (0-4.4) Baso % (Auto) 0.5 % (0.2-1.2) Lymph # (Auto) 0.83 L K/mm3 (0.9-3.2) [place] # (Auto) 0.8 H K/mm3 (0.1-0.6) Eos # (Auto) 0.4 H K/mm3 (0-0.3) Baso # (Auto) 0.1 K/mm3 (0.0-0.1) Abs Immat Gran (auto) 0.03 K/mm3 (0.00-0.031) Absolute Neuts (auto) 8.9 H K/mm3 (1.3-6.7) Absolute Nucleated RBC 0.000 K/mm3 (0.0-0.012) Nucleated RBC % 0.0 % (0.0-0.2) Sodium 137 mmol/L (137-145) Potassium 4.3 mmol/L (3.4-5.0) Chloride 109 H mmol/L (98-107) Carbon Dioxide 21 L mmol/L (22-30) Anion Gap 7 mmol/L (4-12) BUN 14 mg/dL (7-17) Creatinine 0.80 mg/dL (0.7-1.0) Estim Creat Clear Calc 80 ml/min Estimated GFR > 60 (59 - ) Glucose 142 H mg/dL (65-110) Calcium 9.2 mg/dL (8.4-10.2) Total Bilirubin 0.6 mg/dL (0.2-1.3) AST 23 U/L (14-36) ALT 24 U/L (6-35) Alkaline Phosphatase 96 U/L (38-126) Total Protein 7.0 g/dL (6.3-8.2) Albumin 4.4 g/dL (3.5-5.1) Lipase 67 U/L (23-300) Urine Color Yellow (Yellow) Urine Appearance Clear (Clear) Urine pH 5.0 (5.0-9.0) Ur Specific [place] 1.024 (1.001-1.035) Urine Protein Negative mg/dL (Negative) Urine Glucose (UA) Negative mg/dL (Negative) Urine Ketones Trace H mg/dL (Negative) Ur Blood (Man) Negative (Negative) Urine Nitrate Negative (Negative) Urine Bilirubin Negative (Negative) Urine Urobilinogen 0.2 mg/dL (<2.0) Leukocyte Esterase Rfl Trace H ROSCOE/UL (Negative) Urine RBC 0-2 /hpf (0-2) Urine WBC 0-5 /hpf (0-3) Ur Squamous Epith Cells Occasional /hpf (Few) Urine Bacteria None seen /hpf Urine Casts 0-2 Patient hx anesthesia problems: none Family hx anesthesia problems: none Results Review: All pre-operative results and documents have been reviewed as part of the pre-operative evaluation. [facility] Past Medical History Medical History Arthritis History of endometrial cancer Polymyositis Surgical History Surgical History H/O right wrist surgery History of total abdominal hysterectomy and bilateral salpingo-oophorectomy Family History Family History Grandparent Hypertension Fam
[2024-02-21] MEDS: BUPIVACAINE/EPINEPHRINE 0.5% 50 ML VIAL 30 ML INFILTRATE (11:07)
--- NOTE | 2024-02-21 11:38 | W.PM.PROC2 ---
Procedure Note - Detailed Date of Procedure 02/21/24 Pre-op Diagnosis Acute appendicitis Post-op Diagnosis Same Procedure Performed Laparoscopic appendectomy Surgeon Cristofer Son, DO Anesthesia General and Local (0.5% bupivicaine with epinephrine) Indications This is a 63-year-old woman who presented to the emergency department with right lower quadrant pain that started yesterday. She has never experienced any pain like this before. She was noted to have an elevated white blood count and CT showed evidence of acute appendicitis. Discussions were made with the patient about treatment options and decision was made to proceed with laparoscopic appendectomy, possible open. Findings Laparoscopic appendectomy was performed. The appendix was identified in a slightly retrocecal location. The tip of the appendix was up near the inferior edge of the right lobe of the liver. The appendix appeared acutely inflamed but there was no evidence of perforation or abscess. The base of the appendix appeared healthy and viable. The appendix was removed and sent to the lab for pathology. Description of Procedure Procedure as well as risks, benefits, and alternatives were explained to the patient. The patient agreed to proceed. Written consent was obtained and placed in chart prior to procedure. The patient was brought back to surgical suite. She was placed supine on operating table. Time-out was done to confirm the patient and procedure. The patient was then intubated by the Anesthesia Department. Her abdomen was prepped and draped in sterile fashion using chlorhexidine prep. A 5 mm incision was made just to the left of the patient's umbilicus and a 5 mm Optiview trocar was advanced through the abdominal layers under direct visualization. Once inside the peritoneal cavity, carbon dioxide insufflation was used to create a pneumoperitoneum. The camera was inserted and the abdomen was inspected. No immediate abnormalities were identified. The patient was then placed in slight Trendelenburg position and rotated to the left. A 5 mm incision was made in the suprapubic region in midline and a 5 mm trocar was inserted under direct visualization. A 12 mm incision was made in the left lower quadrant and a 12 mm trocar was inserted under direct visualization. The right lower quadrant was carefully inspected. The cecum was identified and then this was traced back to the appendix. The appendix was identified and grasped at the mesoappendix and lifted anteriorly. Careful blunt dissection was carried out at the base of the appendix through the mesoappendix using a [place] grasper. An Endo-DAVON 45 mm blue load stapler was then advanced across the base of the appendix and clamped and fired. A white reload was then clamped across the mesoappendix and fired. This freed up our appendix completely. It was then placed in an EndoCatch bag and removed through the left lower quadrant port. The staple lines were then inspected. Hemostasis appeared adequate and the staple lines appeared secure. The area was then irrigated with sterile saline. The pelvis was then carefully inspected and irrigated with sterile saline as well and the remainder of the abdomen was carefully inspected. The patient was then flattened out in bed. One final inspection was made around the abdominal cavity and no other abnormalities were seen. The left lower quadrant port was removed and a Pj-Keren cone was used to approximate the fascia with an 0 Vicryl simple interrupted suture. The remaining ports were then removed under direct visualization. The camera was removed and the pneumoperitoneum was released. 0.5% bupivacaine with epinephrine was infiltrated locally around each of the incisions. The skin of the incisions was then approximated using 4-0 Monocryl subcuticular suture and Exofin glue was applied on top. The patient was then awakened from anesthesia, extubated, and transferred to Recovery. Es
== END 2024-02-21 13:21 | disposition home or self-care (01) ==
LOC: ANHED 09:15 → ANHSURGERY 09:26
PROVIDERS: Emergency Medicine; Emergency Provider Emergency Medicine; PCP Family Medicine; Visit Provider Surgery
PROC: 0DTJ4ZZ Resection of Appendix, Percutaneous Endoscopic Approach (ICD-10-PCS; CPT 44970; principal; 2024-02-21 11:00)
DX: K35.80 Unspecified acute appendicitis (principal); F17.210 Nicotine dependence, cigarettes, uncomplicated; Z85.42 Personal history of malignant neoplasm of other parts of uterus; Z92.21 Personal history of antineoplastic chemotherapy; Z92.3 Personal history of irradiation
CPT/HCPCS: 44970; 36415; 74177; 80053; 81001; 83690; 85025; 88304; 96365; 96375; 99285; J0330; J1100; J2405; J2543; J2704; J3010; J7030; J7120; Q9967

== ENCOUNTER 2024-03-10 08:07 | Emergency (ER) | payer OTHER, SELFPAY ==
[2024-03-10] VITALS (42 sets, daily range): BP systolic 115–139; BP diastolic 62–91; PULSE 66–93; RESP 12–22; TEMP 36.7; O2SAT 96–100
--- NOTE | ~2024-03-10 | XR_ITS ---
XR chest 1V portable DATE: 03/10/2024 09:11 INDICATION: Dizziness, weakness. Appendectomy on 02/20. Fall. TECHNIQUE: Portable upright AP chest on 03/10/2024 at 0907 hours COMPARISON: None FINDINGS: Normal heart size. No hilar or mediastinal enlargement. Right jugular central venous catheter tip overlies the right atrium. No pneumothorax. No pulmonary consolidation, pleural effusion. IMPRESSION: Right internal jugular central venous catheter in right atrium No active cardiopulmonary disease Reviewed, dictated and finalized at [facility].
--- NOTE | 2024-03-10 08:22 | ECG_ITS ---
[facility] [address] Test Date: 2024-03-10 Pat Name: Nadira Willingham Department: Room: Gender: F Traffic Clerk: : [id number] Requested By: Deon Limon Order Number: [id number] Mansoor MD: Julio Doe M.D. Measurements Intervals [place] Rate: 79 P: 36 MA: 142 QRS: 104 QRSD: 93 T: 36 QT: 364 QTc: 419 Interpretive Statements SINUS RHYTHM RIGHTWARD AXIS POSSIBLE RIGHT VENTRICULAR HYPERTROPHY [SOME/ALL OF: PROMINENT R IN V1, LATE TRANSITION, RAD, ALEX, SSS] ABNORMAL ECG No previous ECG available for comparison Electronically Signed On 03-11-2024 07:41:23 CDT by Julio Doe M.D.
--- NOTE | 2024-03-10 09:05 | ED.GENADULT ---
HPI - General Adult General Chief complaint: Dizziness Stated complaint: DIZZINESS, S/P APPY 02/20 Time Seen by Provider: 03/10/24 08:11 History of Present Illness HPI narrative: This is a 63-year-old female presenting with lightheadedness. Patient says that over last 2 weeks ago while she was getting up from a sofa she became lightheaded and fell against her dresser. She hit her chest against the dresser but did not seek medical attention at that time. She had been well since then until last night when she got up off of her recliner and tried to go to her bedroom became lightheaded. That time she sat down and her symptoms improved. She is currently asymptomatic. patient has had vertigo in the past but says this is a different sensation. No neurologic deficits Patient had an appendectomy on February 20 but has been doing well since then. She denies fevers chills nausea vomiting diarrhea, decreased oral intake, chest pain difficulty breathing lower extremity edema, melena or hematochezia. Related Data Home Medications Medication Instructions Recorded Confirmed ibuprofen 200 mg tablet (Advil) 200 mg PO BID 04/07/23 04/10/23 Allergies Allergy/AdvReac Type Severity Reaction Status Date / Time No Known Allergies Allergy Unknown Verified 03/10/24 08:08 [facility] Past Medical History Medical History Arthritis History of endometrial cancer Polymyositis Surgical History Surgical History H/O right wrist surgery History of total abdominal hysterectomy and bilateral salpingo-oophorectomy Family History Family History Grandparent Hypertension Family history of elevated blood lipids Carcinoma of colon Other Anxiety Family history of gastrointestinal disorder Family history of mental disorder Social History Social History Smoking status: Current every day smoker Second hand tobacco smoke exposure: No Alcohol intake: current Substance use: never Substance use type: does not use Lack of Transportation: No Lack of Food: Never True Current Housing: I Have Housing Concerned About Future Housing: No Difficulty Paying Gas/Electric Bills: No Difficulty Paying for Meds: No Currently Unemployed: No Education: High School Diploma/GED Difficulty w/ Childcare or Family Care: No Exam Narrative: APPEARANCE: No apparent distress. Patient becomes dizzy when going from lying to sitting Head: atraumatic. EYES: EOMI, NOSE: Atraumatic NECK: Trachea midline RESPIRATORY: No increased rate of breathing CARDIOVASCULAR: RRR, ABDOMINAL: Non-distended MUSCULOSKELETAl: No obvious deformities NEURO: Alert. Moving 4/4 extremities SKIN:: Warm, dry. Normal color PSYCHIATRIC: Normal affect Course Vital Signs Vital signs: Vital Signs Temperature 98.0 F 03/10/24 08:13 Pulse Rate 84 03/10/24 08:13 Respiratory Rate 16 03/10/24 08:13 Blood Pressure 139/91 H 03/10/24 08:13 Pulse Oximetry 99 03/10/24 08:13 Oxygen Delivery Room Air 03/10/24 08:13 Temperature 98.0 F 03/10/24 08:13 Pulse Rate 73 03/10/24 12:16 Respiratory Rate 12 03/10/24 12:16 Blood Pressure 128/75 03/10/24 12:16 Pulse Oximetry 100 03/10/24 12:16 Oxygen Delivery Room Air 03/10/24 08:13 Medical Decision Making MDM Narrative Medical decision making narrative: -Course: 63 year female presenting with dizziness while standing. Workup including laboratory studies, troponin BNP chest x-ray EKG was all negative. Patient received 2 L of fluid and was able stand walk around the emergency department without difficulty. Presentation most consistent with orthostatic hypotension. Patient will be discharged home with return precautions primary care follow-up -DDX includes but is
[2024-03-10] MEDS: SODIUM CHLORIDE 0.9% IV 2,000 ML 999 ML IV CONT (09:08)
[2024-03-10 09:15] LABS: Basophils Absolute Auto 0.1 K/mm3 (0.0-0.1); Basophils Percent Auto 0.9 % (0.2-1.2); Eosinophils Absolute Auto 0.4 K/mm3 (0-0.3); Eosinophils Percent Auto 6.8 % (0-4.4); Hematocrit 42.1 % (37.0-47.0); Hemoglobin 13.9 g/dL (12.0-15.0); Immature Granulocyte Absolute 0.02 K/mm3 (0.00-0.031); Immature Granulocyte Percent A 0.4 % (0-0.5); Lymphocytes Absolute Auto 1.01 K/mm3 (0.9-3.2); Lymphocytes Percent Auto 18.4 % (18.3-44.2); Mean Corpuscular Hemoglobin 30.8 pg (26-34); Mean Corpuscular Volume 93.1 fl (80-100); Mean Platelet Volume 9.2 fl (7.4-10.4); Monocytes Absolute Auto 0.6 K/mm3 (0.1-0.6); Monocytes Percent Auto 10.9 % (2.6-8.5); Neutrophils Absolute Auto 3.4 K/mm3 (1.3-6.7); Neutrophils Percent Auto 62.6 % (45.5-73.1); Platelet Count Result 238 k/mm3 (150-375); Red Blood Count 4.52 M/mm3 (4.2-5.4); Red Cell Distribution Width 12.8 % (11.5-14.5); White Blood Count 5.5 K/mm3 (4.5-10.0)
[2024-03-10 09:16] LABS: Appearance Urine Clear (Clear); Bilirubin Urine Negative (Negative); Blood Urine Negative (Negative); Color Urine Yellow (Yellow); Glucose Urine UA Negative (Negative); Ketones Urine Negative (Negative); Leukocyte Esterase Ur Negative LEU/UL (Negative); Nitrate Urine Negative (Negative); Protein Urine Negative (Negative); Urobilinogen Urine 0.2 mg/dL (<2.0)
[2024-03-10 09:24] LABS: Add Urine Microscopic? NO; Specific Grav Ur 1.004 (1.001-1.035)
[2024-03-10 09:27] LABS: Alanine Aminotransferase 38 U/L (6-35); Albumin Level 4.5 g/dL (3.5-5.1); Alkaline Phosphatase 98 U/L (38-126); Anion Gap 5 mmol/L (4-12); Aspartate Amino Transferase 30 U/L (14-36); Bilirubin,Total 0.4 mg/dL (0.2-1.3); Blood Urea Nitrogen 12 mg/dL (7-17); Calcium 9.6 mg/dL (8.4-10.2); Carbon Dioxide 24 mmol/L (22-30); Chloride 108 mmol/L (98-107); Estimated CRCL calculation 79 ml/min; Estimated Glomerular Filt Rate > 60; Glucose 105 mg/dL (65-110); Potassium 4.4 mmol/L (3.4-5.0); Sodium 137 mmol/L (137-145)
[2024-03-10 09:39] LABS: NT Pro B Type Natriuretic Pept 42 pg/mL (19.9-100); Troponin I < 0.012 ng/mL (0.000-0.034)
[2024-03-10 12:24] LABS: Troponin I < 0.012 ng/mL (0.000-0.034)
--- NOTE | 2024-03-10 12:27 | PC.NURSE ---
Pt states: I fell better after the fluids, no longer lightheaded
== END 2024-03-10 12:41 | disposition home or self-care (01) ==
PROVIDERS: Emergency Provider Emergency Medicine; PCP Family Medicine
DX: R55 Syncope and collapse (principal); F17.210 Nicotine dependence, cigarettes, uncomplicated; M19.90 Unspecified osteoarthritis, unspecified site; Z85.42 Personal history of malignant neoplasm of other parts of uterus; Z90.710 Acquired absence of both cervix and uterus
CPT/HCPCS: 36415; 71045; 80053; 81003; 83880; 84484; 85025; 93005; 96360; 96361; 99284; J7030

== ENCOUNTER 2024-03-12 08:03 | Outpatient (CLI) | payer OTHER, SELFPAY ==
[2024-03-12 14:57] LABS: Basophils Absolute Auto 0.1 K/mm3 (0.0-0.1); Basophils Percent Auto 0.8 % (0.2-1.2); Eosinophils Absolute Auto 0.4 K/mm3 (0-0.3); Eosinophils Percent Auto 6.1 % (0-4.4); Hematocrit 41.5 % (37.0-47.0); Hemoglobin 13.2 g/dL (12.0-15.0); Immature Granulocyte Absolute 0.03 K/mm3 (0.00-0.031); Immature Granulocyte Percent A 0.5 % (0-0.5); Lymphocytes Absolute Auto 0.94 K/mm3 (0.9-3.2); Mean Corpuscular HGB Conc 31.8 g/dl (32-36); Mean Corpuscular Hemoglobin 30.6 pg (26-34); Mean Corpuscular Volume 96.3 fl (80-100); Mean Platelet Volume 9.7 fl (7.4-10.4); Monocytes Absolute Auto 0.6 K/mm3 (0.1-0.6); Monocytes Percent Auto 9.4 % (2.6-8.5); Neutrophils Absolute Auto 4.3 K/mm3 (1.3-6.7); Neutrophils Percent Auto 68.2 % (45.5-73.1); Platelet Count Result 225 k/mm3 (150-375); Red Blood Count 4.31 M/mm3 (4.2-5.4); Red Cell Distribution Width 12.9 % (11.5-14.5); White Blood Count 6.3 K/mm3 (4.5-10.0)
== END 2024-03-12 08:04 | disposition home or self-care (01) ==
PROVIDERS: PCP Family Medicine
DX: C54.1 Malignant neoplasm of endometrium (principal)
CPT/HCPCS: 36415; 85025

== ENCOUNTER 2024-04-04 08:08 | Outpatient (CLI) | payer OTHER, SELFPAY ==
[2024-04-04 19:48] LABS: Alanine Aminotransferase 40 U/L (6-35); Albumin Level 4.1 g/dL (3.5-5.1); Alkaline Phosphatase 99 U/L (38-126); Anion Gap 5 mmol/L (4-12); Aspartate Amino Transferase 40 U/L (14-36); Bilirubin,Total 0.5 mg/dL (0.2-1.3); Blood Urea Nitrogen 11 mg/dL (7-17); Calcium 9.3 mg/dL (8.4-10.2); Carbon Dioxide 26 mmol/L (22-30); Chloride 105 mmol/L (98-107); Cholesterol 253 mg/dL (0-200); Estimated Glomerular Filt Rate > 60; Glucose 106 mg/dL (65-110); HDL Direct 43 mg/dL; Potassium 4.2 mmol/L (3.4-5.0); Sodium 136 mmol/L (137-145); Triglycerides 290 mg/dL (<150)
[2024-04-04 19:59] LABS: LDL Cholesterol Direct 137 mg/dL
[2024-04-07 08:19] LABS: CA-125 10 U/mL (<35)
== END 2024-04-04 08:09 | disposition home or self-care (01) ==
LOC: ANHGOSHLAB 08:10
PROVIDERS: PCP Family Medicine; Visit Provider Physician Assistant Medical
DX: Z08 Encounter for follow-up examination after completed treatment for malignant neoplasm (principal); E78.2 Mixed hyperlipidemia
CPT/HCPCS: 36415; 80053; 80061; 86304

== ENCOUNTER 2024-06-07 07:16 | Emergency (ER) | payer OTHER, SELFPAY ==
--- NOTE | ~2024-06-07 | CT_ITS ---
CT of the Abdomen and Pelvis: Indication: Abdominal pain Technique: 2.5 mm axial scans were obtained through the abdomen and pelvis following intravenous adm inistration of 100 cc of Omnipaque 350. Dose reduction technique was used on this scan by utilizing a utomated exposure control and iterative reconstruction technique. The dose-length product (DLP) was 1 389.33 mGy-cm. COMPARISON: 02/21/2024 Findings: Scans through the lung bases are unremarkable. The liver, spleen, pancreas, gallbladder, adrenals and kidneys are within normal limits. There are at herosclerotic calcifications of the aorta. No lymphadenopathy. No bowel obstruction or bowel wall thickening. Status post appendectomy. Images through the pelvis were performed. Urinary bladder unremarkable. No pelvic mass seen. No ascit es. There is a new compression fracture at the C3 and fusion of L4. Impression: Acute L4 compression fracture. No other significant findings. Reviewed, dictated and finalized at [facility]. Impression: Acute L4 compression fracture. No other significant findings.
[2024-06-07 07:20] VITALS: BP 122/73; PULSE 100; RESP 15; TEMP 36.4; O2SAT 100
--- NOTE | 2024-06-07 07:58 | ED.GENADULT ---
HPI - General Adult General Chief complaint: Back Pain/Injury Stated complaint: R flank pain Time Seen by Provider: 06/07/24 07:36 History of Present Illness HPI narrative: Patient with history of endometrial cancer status post radiation, hysterectomy, and recent appendectomy, presents here with pain to her right flank that radiates down to her groin. Ongoing for the last week, no nausea vomiting. No fevers chills. No dysuria Related Data Home Medications Medication Instructions Recorded Confirmed ibuprofen 200 mg tablet (Advil) 200 mg PO BID 04/07/23 04/03/24 Allergies Allergy/AdvReac Type Severity Reaction Status Date / Time No Known Allergies Allergy Unknown Verified 06/07/24 07:34 Review of Systems Review of Systems: All systems reviewed & are unremarkable except as noted in HPI and below PMFSH Past Medical History Medical History Arthritis History of endometrial cancer Polymyositis Surgical History Surgical History H/O right wrist surgery History of appendectomy 02/21/24 Dr. Son History of total abdominal hysterectomy and bilateral salpingo-oophorectomy Family History Family History Grandparent Hypertension Family history of elevated blood lipids Carcinoma of colon Other Anxiety Family history of gastrointestinal disorder Family history of mental disorder Social History Social History Smoking status: Current every day smoker Second hand tobacco smoke exposure: No Alcohol intake: current Substance use: never Substance use type: does not use Lack of Transportation: No Lack of Food: Never True Current Housing: I Have Housing Concerned About Future Housing: No Difficulty Paying Gas/Electric Bills: No Difficulty Paying for Meds: No Currently Unemployed: No Education: High School Diploma/GED Difficulty w/ Childcare or Family Care: No Exam Narrative: EXAMINATION OF ORGAN SYSTEMS/BODY AREAS: Constitutional: Vital signs per nursing GENERAL:[No acute distress, non-toxic appearing.] HEAD: Normal with no signs of head trauma. EYES: EOMI, conjunctiva normal ENT: Hearing grossly intact LUNGS: Nonlabored breathing. HEART: [Regular rate and rhythm] ABD: [Soft], no significant [tenderness to palpation] EXT: Normal range of motion SKIN: [No rashes or lesions.] NEURO: [Alert and oriented x 3. No gross focal sensory or strength deficits.] PSYCH: Normal affect Course Vital Signs Vital signs: Vital Signs Temperature 97.6 F 06/07/24 07:20 Pulse Rate 100 06/07/24 07:20 Respiratory Rate 15 06/07/24 07:20 Blood Pressure 122/73 06/07/24 07:20 Pulse Oximetry 100 06/07/24 07:20 Oxygen Delivery Room Air 06/07/24 07:20 Temperature 97.6 F 06/07/24 07:20 Pulse Rate 100 06/07/24 07:20 Respiratory Rate 15 06/07/24 07:20 Blood Pressure 122/73 06/07/24 07:20 Pulse Oximetry 100 06/07/24 07:20 Oxygen Delivery Room Air 06/07/24 07:20 Medical Decision Making [facility] Narrative Medical decision making narrative: 63-year-old female with complex abdominal surgery history presents here with pain to her right lower back that seems to go to the front, she is otherwise well appearing, given her history I did obtain labs and a CT which shows a lumbar compression fracture. Findings, care instructions, follow-up instructions discussed with the patient and prescriptions for lidocaine patches and muscle relaxant provided. Patient is ambulatory, agreeable to outpatient management. Stable for discharge. Vital Signs Vital Signs: Vital Signs Temperature 97.6 F 06/07/24 07:20 Pulse Rate 100 06/07/24 07:20 Respiratory Rate 15 06/07/24 07:20 Blood Pressure 122/73 06/07/24 07:20 Pulse Oximetry 1
[2024-06-07 08:01] LABS: Add Urine Microscopic? NO; Appearance Urine Clear (Clear); Bilirubin Urine Negative (Negative); Blood Urine Negative (Negative); Color Urine Yellow (Yellow); Glucose Urine UA Negative (Negative); Ketones Urine Negative (Negative); Leukocyte Esterase Ur Negative LEU/UL (Negative); Nitrate Urine Negative (Negative); Protein Urine Negative (Negative); Specific Grav Ur 1.005 (1.001-1.035); Urobilinogen Urine 0.2 mg/dL (<2.0); pH Urine 5.5 (5.0-9.0)
[2024-06-07 08:04] LABS: Basophils Absolute Auto 0.1 K/mm3 (0.0-0.1); Basophils Percent Auto 1.5 % (0.2-1.2); Eosinophils Absolute Auto 0.2 K/mm3 (0-0.3); Eosinophils Percent Auto 3.5 % (0-4.4); Hematocrit 44.2 % (37.0-47.0); Hemoglobin 14.6 g/dL (12.0-15.0); Immature Granulocyte Absolute 0.02 K/mm3 (0.00-0.031); Immature Granulocyte Percent A 0.4 % (0-0.5); Lymphocytes Absolute Auto 0.86 K/mm3 (0.9-3.2); Lymphocytes Percent Auto 15.8 % (18.3-44.2); Mean Corpuscular Hemoglobin 30.6 pg (26-34); Mean Corpuscular Volume 92.7 fl (80-100); Mean Platelet Volume 8.8 fl (7.4-10.4); Monocytes Absolute Auto 0.6 K/mm3 (0.1-0.6); Monocytes Percent Auto 10.1 % (2.6-8.5); Neutrophils Absolute Auto 3.7 K/mm3 (1.3-6.7); Neutrophils Percent Auto 68.7 % (45.5-73.1); Platelet Count Result 224 k/mm3 (150-375); Red Blood Count 4.77 M/mm3 (4.2-5.4); Red Cell Distribution Width 13.6 % (11.5-14.5); White Blood Count 5.4 K/mm3 (4.5-10.0)
[2024-06-07 08:14] LABS: Alanine Aminotransferase 26 U/L (6-35); Albumin Level 4.5 g/dL (3.5-5.1); Alkaline Phosphatase 94 U/L (38-126); Anion Gap 9 mmol/L (4-12); Aspartate Amino Transferase 28 U/L (14-36); Bilirubin,Total 0.4 mg/dL (0.2-1.3); Blood Urea Nitrogen 15 mg/dL (7-17); Calcium 9.5 mg/dL (8.4-10.2); Carbon Dioxide 28 mmol/L (22-30); Chloride 99 mmol/L (98-107); Estimated CRCL calculation 69 ml/min; Estimated Glomerular Filt Rate > 60; Glucose 110 mg/dL (65-110); Lipase 81 U/L (23-300); Potassium 4.7 mmol/L (3.4-5.0); Sodium 136 mmol/L (137-145)
[2024-06-07 09:32] VITALS: BP 116/74; PULSE 90; RESP 18; TEMP 36.7; O2SAT 98
== END 2024-06-07 09:34 | disposition home or self-care (01) ==
LOC: ANHED 09:12
PROVIDERS: Emergency Provider Emergency Medicine; PCP Family Medicine
DX: S32.049A Unspecified fracture of fourth lumbar vertebra, initial encounter for closed fracture (principal); X58.XXXA Exposure to other specified factors, initial encounter; Z85.42 Personal history of malignant neoplasm of other parts of uterus; Z92.3 Personal history of irradiation; Z90.710 Acquired absence of both cervix and uterus; F17.200 Nicotine dependence, unspecified, uncomplicated
CPT/HCPCS: 36415; 74177; 80053; 81003; 83690; 85025; 99284; Q9967

== ENCOUNTER 2024-06-12 08:09 | Outpatient (CLI) | payer OTHER, SELFPAY ==
[2024-06-12 12:45] LABS: Basophils Absolute Auto 0.1 K/mm3 (0.0-0.1); Basophils Percent Auto 0.9 % (0.2-1.2); Eosinophils Absolute Auto 0.2 K/mm3 (0-0.3); Eosinophils Percent Auto 3.6 % (0-4.4); Hematocrit 45.4 % (37.0-47.0); Hemoglobin 14.6 g/dL (12.0-15.0); Immature Granulocyte Absolute 0.01 K/mm3 (0.00-0.031); Immature Granulocyte Percent A 0.2 % (0-0.5); Lymphocytes Percent Auto 17.1 % (18.3-44.2); Mean Corpuscular HGB Conc 32.2 g/dl (32-36); Mean Corpuscular Hemoglobin 30.4 pg (26-34); Mean Corpuscular Volume 94.4 fl (80-100); Mean Platelet Volume 9.6 fl (7.4-10.4); Monocytes Absolute Auto 0.6 K/mm3 (0.1-0.6); Monocytes Percent Auto 9.7 % (2.6-8.5); Neutrophils Absolute Auto 4.4 K/mm3 (1.3-6.7); Neutrophils Percent Auto 68.5 % (45.5-73.1); Platelet Count Result 254 k/mm3 (150-375); Red Blood Count 4.81 M/mm3 (4.2-5.4); Red Cell Distribution Width 13.6 % (11.5-14.5); White Blood Count 6.4 K/mm3 (4.5-10.0)
== END 2024-06-12 08:10 | disposition home or self-care (01) ==
LOC: ANHGOSHLAB 08:11
PROVIDERS: PCP Family Medicine
DX: C54.1 Malignant neoplasm of endometrium (principal)
CPT/HCPCS: 36415; 85025

== ENCOUNTER 2024-07-11 08:07 | Outpatient (CLI) | payer OTHER, SELFPAY ==
[2024-07-11 16:50] LABS: Basophils Absolute Auto 0.1 K/mm3 (0.0-0.1); Basophils Percent Auto 0.8 % (0.2-1.2); Eosinophils Absolute Auto 0.3 K/mm3 (0-0.3); Eosinophils Percent Auto 5.2 % (0-4.4); Hematocrit 42.2 % (37.0-47.0); Hemoglobin 13.7 g/dL (12.0-15.0); Immature Granulocyte Absolute 0.02 K/mm3 (0.00-0.031); Immature Granulocyte Percent A 0.3 % (0-0.5); Lymphocytes Absolute Auto 0.81 K/mm3 (0.9-3.2); Lymphocytes Percent Auto 13.5 % (18.3-44.2); Mean Corpuscular HGB Conc 32.5 g/dl (32-36); Mean Corpuscular Hemoglobin 30.5 pg (26-34); Mean Platelet Volume 9.7 fl (7.4-10.4); Monocytes Absolute Auto 0.5 K/mm3 (0.1-0.6); Monocytes Percent Auto 8.3 % (2.6-8.5); Neutrophils Absolute Auto 4.3 K/mm3 (1.3-6.7); Neutrophils Percent Auto 71.9 % (45.5-73.1); Platelet Count Result 228 k/mm3 (150-375); Red Blood Count 4.49 M/mm3 (4.2-5.4); Red Cell Distribution Width 14.1 % (11.5-14.5)
[2024-07-11 17:05] LABS: Alanine Aminotransferase 24 U/L (6-35); Albumin Level 4.2 g/dL (3.5-5.1); Alkaline Phosphatase 109 U/L (38-126); Anion Gap 6 mmol/L (4-12); Aspartate Amino Transferase 31 U/L (14-36); Bilirubin,Total 0.3 mg/dL (0.2-1.3); Blood Urea Nitrogen 12 mg/dL (7-17); Calcium 9.4 mg/dL (8.4-10.2); Carbon Dioxide 28 mmol/L (22-30); Chloride 105 mmol/L (98-107); Estimated Glomerular Filt Rate > 60; Glucose 98 mg/dL (65-110); Potassium 4.5 mmol/L (3.4-5.0); Sodium 139 mmol/L (137-145)
[2024-07-12 11:34] LABS: CA-125 9 U/mL (<35)
== END 2024-07-11 08:08 | disposition home or self-care (01) ==
LOC: ANHGOSHLAB 08:10
PROVIDERS: PCP Family Medicine
DX: C54.1 Malignant neoplasm of endometrium (principal); Z08 Encounter for follow-up examination after completed treatment for malignant neoplasm
CPT/HCPCS: 36415; 80053; 85025; 86304

== ENCOUNTER 2024-07-12 07:12 | Outpatient (CLI) | payer OTHER, SELFPAY ==
--- NOTE | ~2024-07-12 | XR_ITS ---
Lumbosacral Spine: AP and lateral views Clinical History: Pain Findings: The normal lordotic curve is maintained. There is mild compression deformity at the supracl avicular region of L4. There is advanced facet arthropathy throughout the lumbar spine. Intervertebra l discs are relatively well-preserved, with mild degenerative change, especially at L3-L4. The sacroi liac joints are normally outlined. Impression: Mild L4 compression fracture at the superior endplate region. Extensive facet arthropathy. Reviewed, dictated and finalized at [facility]. Impression: Mild L4 compression fracture at the superior endplate region. Extensive facet arthropathy.
== END 2024-07-12 07:13 | disposition home or self-care (01) ==
PROVIDERS: PCP Family Medicine; Visit Provider Neurological Surgery
DX: S32.040A Wedge compression fracture of fourth lumbar vertebra, initial encounter for closed fracture (principal); X58.XXXA Exposure to other specified factors, initial encounter
CPT/HCPCS: 72100

== ENCOUNTER 2024-09-11 15:39 | Outpatient (CLI) | payer OTHER, SELFPAY ==
--- NOTE | ~2024-09-11 | CT_ITS ---
Noncontrast CT scan of the lumbar spine CLINICAL HISTORY: Unspecified injury TECHNIQUE: Axial noncontrast imaging of the lumbar spine was performed. Sagittal and coronal reformat abhishek images were constructed. Dose reduction technique was used on this scan by utilizing automated ex posure control and iterative reconstruction technique. The dose-length product (DLP) was 1207.86 mGy- cm. FINDINGS: There are probable acute mild to moderate compression fractures of superior endplate region s of L4-L5. No subluxation evident. At L1-L2, there is minimal disc bulge and minimal facet arthropathy. No central canal stenosis or def inite neural foraminal narrowing. At L2-L3, there is no significant disc bulge or herniation. There is minimal facet joint hypertrophy. No central canal stenosis or definite neural foraminal narrowing. L3-L4, there is disc bulge with facet arthropathy and minimal retropulsion, all which contribute to p robable severe spinal canal stenosis/thecal sac compression at this level. There is moderate to sever e left neural foraminal narrowing, and severe right neural foraminal narrowing. At L4-L5, there is disc bulge with facet arthropathy, resulting in mild to moderate central canal lamont nosis/thecal sac compression. There is mild to moderate bilateral neural foraminal narrowing, left wo rse than right. At L5-S1, there is minimal disc bulge and mild facet arthropathy. No central canal stenosis. There is mild to moderate bilateral neural foraminal narrowing. Paravertebral soft tissues are unremarkable. Impression: Acute compression fractures of L4 and L5, as detailed above. Severe degenerative spondylosis at L3-L4, as detailed above. Moderate degenerative spondylosis at L4-L5. Reviewed, dictated and finalized at [facility]. INISH OPERATOR Impression: Acute compression fractures of L4 and L5, as detailed above. Severe degenerative spondylosis at L3-L4, as detailed above. Moderate degenerative spondylosis at L4-L5.
== END 2024-09-11 15:40 | disposition home or self-care (01) ==
LOC: ANHIMG 15:41
PROVIDERS: PCP Family Medicine; Visit Provider Neurological Surgery
DX: S34.109A Unspecified injury to unspecified level of lumbar spinal cord, initial encounter (principal); X58.XXXA Exposure to other specified factors, initial encounter; M47.896 Other spondylosis, lumbar region
CPT/HCPCS: 72131

== ENCOUNTER 2024-10-04 09:40 | Outpatient (CLI) | payer OTHER, SELFPAY ==
--- NOTE | ~2024-10-04 | MR_ITS ---
EXAMINATION: MR lumbar spine wo con DATE: 10/04/2024 10:06 INDICATION: Lumbar vertebral fractures. TECHNIQUE: Magnetic resonance imaging (MRI) of the lumbar spine was performed without intravenous con trast. Sequences included sagittal T2-weighted FSE, sagittal T2-weighted FS FSE, sagittal T1-weighted FSE, and axial T2-weighted FSE. COMPARISON: CT dated 09/11/2024 FINDINGS: 1 mm retrolisthesis L1 on L2 and L2 on L3.. Subacute L4 burst fracture with depression of the superio r endplate resulting in one third central vertebral body height loss as well as 4 mm retropulsion. Th ere is an additional subacute L5 burst fracture with depression of the superior endplate resulting in 40% central vertebral body height loss and 2 mm retropulsion. There is prominent associated marrow e chris at both L4 on L5. Remaining bone marrow signal is normal. Disc desiccation and mild disc height loss at T12-L1 and L5-S1. There is ballooning of the central aspect of the L3-L4 and L4-L5 disc space s resulting from the burst fractures. The conus medullaris terminates at L1. There is normal signal i n the caudal spinal cord. Minimal reactive soft tissue edema surrounding the L4 and L5 burst fracture s. The following disc levels are specifically discussed: T12-L1: Disc is bulging. There is mild bilateral facet joint osteoarthritis. There is no neural pily inal stenosis. There is mild central canal stenosis. L1-L2: Disc is minimally bulging. There is mild to moderate bilateral facet joint osteoarthritis. The re is no neural foraminal stenosis. There is no central canal stenosis. L2-L3: The disc does not extend beyond the endplate margin. There is mild left and mild to moderate r ight facet joint osteoarthritis. There is minimal bilateral neural foraminal stenosis. There is no ce ntral canal stenosis. L3-L4: The disc does not extend beyond the retropulsed L4 posterior endplate margin. There is hypertr ophy of the ligamentum flavum. There is moderate bilateral facet joint osteoarthritis. There is moder ate right and mild to moderate left neural foraminal stenosis. There is severe central canal stenosis . L4-L5: Portion of the posterior rim of the superior L5 endplate with mild right foraminal zone disc protrusi on. There is moderate bilateral facet joint osteoarthritis. There is mild right and mild to moderate left neural foraminal stenosis. There is mild to moderate central canal stenosis. L5-S1: Disc is mildly bulging. There is moderate bilateral facet joint osteoarthritis. There is mild to moderate right and mild left neural foraminal stenosis. There is no central canal stenosis. IMPRESSION: 1. Subacute L4 and L5 burst fractures. 2. Mild lumbar and lower thoracic spondylosis most notable for severe central canal stenosis at L3-L4 due to large part to the retropulsed related to the L4 burst fracture. Reviewed, dictated and finalized at [facility]. F PHYSICAL THERAPY ASSISTANT IMPRESSION: 1. Subacute L4 and L5 burst fractures. 2. Mild lumbar and lower thoracic spondylosis most notable for severe central c anal stenosis at L3-L4 due to large part to the retropulsed related to the L4 b urst fracture.
== END 2024-10-04 09:41 | disposition home or self-care (01) ==
LOC: MICIMG 09:41
PROVIDERS: PCP Family Medicine; Visit Provider Nurse Practitioner Family
DX: S32.041A Stable burst fracture of fourth lumbar vertebra, initial encounter for closed fracture (principal); S32.051A Stable burst fracture of fifth lumbar vertebra, initial encounter for closed fracture; M43.06 Spondylolysis, lumbar region; M43.04 Spondylolysis, thoracic region; M48.061 Spinal stenosis, lumbar region without neurogenic claudication; X58.XXXA Exposure to other specified factors, initial encounter
CPT/HCPCS: 72148

== ENCOUNTER 2024-10-16 08:06 | Outpatient (CLI) | payer OTHER, SELFPAY ==
[2024-10-16 13:29] LABS: Basophils Absolute Auto 0.1 K/mm3 (0.0-0.1); Basophils Percent Auto 0.9 % (0.2-1.2); Eosinophils Absolute Auto 0.3 K/mm3 (0-0.3); Eosinophils Percent Auto 3.9 % (0-4.4); Hematocrit 43.3 % (37.0-47.0); Immature Granulocyte Absolute 0.02 K/mm3 (0.00-0.031); Immature Granulocyte Percent A 0.3 % (0-0.5); Lymphocytes Absolute Auto 0.82 K/mm3 (0.9-3.2); Lymphocytes Percent Auto 12.9 % (18.3-44.2); Mean Corpuscular HGB Conc 32.3 g/dl (32-36); Mean Corpuscular Hemoglobin 30.2 pg (26-34); Mean Corpuscular Volume 93.5 fl (80-100); Mean Platelet Volume 9.7 fl (7.4-10.4); Monocytes Absolute Auto 0.5 K/mm3 (0.1-0.6); Monocytes Percent Auto 7.9 % (2.6-8.5); Neutrophils Absolute Auto 4.7 K/mm3 (1.3-6.7); Neutrophils Percent Auto 74.1 % (45.5-73.1); Platelet Count Result 242 k/mm3 (150-375); Red Blood Count 4.63 M/mm3 (4.2-5.4); Red Cell Distribution Width 14.1 % (11.5-14.5); White Blood Count 6.4 K/mm3 (4.5-10.0)
[2024-10-16 13:51] LABS: Alanine Aminotransferase 24 U/L (6-35); Albumin Level 4.1 g/dL (3.5-5.1); Alkaline Phosphatase 122 U/L (38-126); Anion Gap 9 mmol/L (4-12); Aspartate Amino Transferase 31 U/L (14-36); Bilirubin,Total 0.6 mg/dL (0.2-1.3); Blood Urea Nitrogen 9 mg/dL (7-17); Calcium 9.1 mg/dL (8.4-10.2); Carbon Dioxide 26 mmol/L (22-30); Chloride 103 mmol/L (98-107); Estimated Glomerular Filt Rate > 60; Glucose 106 mg/dL (65-110); Potassium 3.9 mmol/L (3.4-5.0); Sodium 138 mmol/L (137-145)
[2024-10-18 12:13] LABS: CA-125 10 U/mL (<35)
== END 2024-10-16 08:07 | disposition home or self-care (01) ==
LOC: ANHGOSHLAB 08:08
PROVIDERS: PCP Family Medicine
DX: C54.1 Malignant neoplasm of endometrium (principal)
CPT/HCPCS: 36415; 80053; 83735; 85025; 86304

== ENCOUNTER 2025-01-08 10:56 | Outpatient (CLI) | payer OTHER, SELFPAY ==
--- NOTE | ~2025-01-08 | MR_ITS ---
MRI of the lumbar spine Clinical History: Spondylosis Technique: Axial T2-weighted images, and sagittal T1-weighted, T2-weighted, and T2 fat-sat images wer e acquired. COMPARISON: 10/04/2024 Findings: Stable compression fractures of L4-L5, with persistent loss of height and persistent marrow edema. Appearance is essentially unchanged from prior exam. No new fracture evident. No subluxation evident. At L1-L2, there is no disc bulge or herniation. There is minimal facet hypertrophy. No central canal stenosis or neural foraminal narrowing. At L2-L3, there is no disc bulge or herniation. There is mild facet hypertrophy. No central canal lamont nosis or neural foraminal narrowing. At L3-L4, there is disc bulge and mild retropulsion, with moderate facet arthropathy. These factors c ontribute to moderate to severe spinal canal stenosis/thecal sac compression. There is mild to modera te bilateral neural foraminal narrowing. At L4-L5, disc bulge with mild retropulsion and facet arthropathy contribute to moderate central christine l stenosis/thecal sac compression. There is also focally prominent posterior epidural fat. There is m oderate left neural foraminal narrowing, and mild right neural foraminal narrowing. At L5-S1, there is mild disc bulge with moderate facet arthropathy. No rangel central canal stenosis. There is moderate bilateral neural foraminal narrowing. Paravertebral soft tissues are unremarkable. Impression: Stable compression fractures of L4-L5, with persistent marrow edema as compared to prior exam. Advanced degenerative spondylosis of the lower lumbar spine, worst at L3-L4 and L4-L5. Reviewed, dictated and finalized at location . Impression: Stable compression fractures of L4-L5, with persistent marrow edema as compared to prior exam. Advanced degenerative spondylosis of the lower lumbar spine, worst at L3-L4 and L4-L5.
== END 2025-01-08 10:57 | disposition home or self-care (01) ==
LOC: MICIMG 10:56
PROVIDERS: PCP Family Medicine; Visit Provider Nurse Practitioner Family
DX: S32.040A Wedge compression fracture of fourth lumbar vertebra, initial encounter for closed fracture (principal); S32.050A Wedge compression fracture of fifth lumbar vertebra, initial encounter for closed fracture; M47.816 Spondylosis without myelopathy or radiculopathy, lumbar region
CPT/HCPCS: 72148

== ENCOUNTER 2025-01-30 08:01 | Outpatient (CLI) | payer OTHER, SELFPAY ==
--- OUTSIDE RECORDS SUMMARY | 2025-01-30 08:08 | XMS_ITS | Encounter Summary ---
Author Organization [facility] Healthcare Address [address] [place] [address] Care Team Providers Care Software Applications Engineer Name Role Phone Naila Sinha MD Primary Care Provider [phone] Elsi Hernandez MD PhD Unavailable + Mercedes Miranda MD Unavailable [phone] Encounter Details Date Type Department Care Team (Late st Contact Info) Description 12/13/2023 [facility] Advanced Medicine Radiation Oncology [address] [facility] [place] [address] Yomaira Walker RN Social History Tobacco Use Types Packs/Day Years Used Date Smoking Tobacco: Every Day Cigarettes Smokeless Tobacco: Never AUDIT-C Answer Date Recorded Q1: How often do you have a drink containing alcohol? 4 or more times a week 07/01/2023 Q2: How many drinks containi ng alcohol do you have on a typical day when you are drinking? 3 or 4 Q3: How often do you have si x or more drinks on one occasion? Never 07/01/2023 Personal Safety Answer Date Recorded Have you ever been in or are you currently in a harmful physical or emotional relationship or is someone making you feel afraid or unsafe? Denies 07/01/2023 Comments No Sex and Gender Information Value Date Recorded Sex Assigned at Not on file Legal Sex Female 4:57 AM APPEALS ASSISTANT Gender Identity Not on file Sexual Orientation Not on file documented as of this encounter Last Filed Vital Signs Vital Sign Reading Time Taken Comments Blood Pressure - - Pulse - - Temperature - - Respiratory Rate - - Oxygen Saturation - - Inhaled Oxygen Concentration - - Weight 109.4 kg (241 lb 3.2 oz) 024 10:25 AM CDT Height - - Body Mass Index 40.14 10/28/2023 8:03 AM APPEALS ASSISTANT documented in this encounter Plan of Treatment Scheduled Procedures Name Priority Associated Diagnoses Date/Ti me ESOPHAGOGASTRODUODENOSCOPY Open Access Hiatal hernia with GERD documented as of this encounter Visit Diagnoses Not on filedocumented in this encounter Care Teams Software Applications Engineer Relationship Specialty Start Date End Date Naila Sinha MD PCP - General Family Medicine 01/26/22 Elsi Hernandez MD PhD [address] [facility] [address] [place] [address] Radiation Oncologist Radiation Oncology 07/19/23 Mercedes Miranda MD [address] [facility] [address] [place] [address] Consulting Physician Radiation Oncology 12/13/23 documented as of this encounter
--- OUTSIDE RECORDS SUMMARY | 2025-01-30 08:08 | XMS_ITS | Encounter Summary ---
Author Organization [facility] Address [address] [place] [address] Phone Care Team Providers Care Nursing Education Specialist Name Role Phone Naila Sinha MD Primary Care Provider [phone] Elsi Hernandez MD PhD Unavailable + Mercedes Miranda MD Unavailable [phone] Encounter Details Date Type Department Care Team (Late st Contact Info) Description 10/24/2024 Documentation [facility] ([facility] - [facility] Minimally Invasive Surgery [address] [place] [address] Advanced Medicine 12th Floor, [place] [address] Blake Valentin BS Social History Tobacco Use Types Packs/Day Years Used Date Smoking Tobacco: Every Day Cigarettes Smokeless Tobacco: Never AUDIT-C Answer Date Recorded Q1: How often do you have a drink containing alc ohol? Never 10/26/2024 Average Number of Drinks Not on file 025 Frequency of Binge Drinking Not on file 10/04 Personal Safety Answer Date Recorded Have you ever been in or are you currently in a harmful physical or emotional relationship or is someone making you feel afraid or unsafe? Denies 10/26/2024 Comments No Sex and Gender Information Value Date Recorded Sex Assigned at Not on file Legal Sex Female 4:57 AM MAT SEWER Gender Identity Not on file Sexual Orientation Not on file documented as of this encounter Functional Status documented as of this encounter Plan of Treatment Scheduled Procedures Name Priority Associated Diagnoses Date/Ti me ESOPHAGOGASTRODUODENOSCOPY Open Access Hiatal hernia with GERD documented as of this encounter Visit Diagnoses Not on filedocumented in this encounter Care Teams Nursing Education Specialist Relationship Specialty Start Date End Date Naila Sinha MD PCP - General Family Medicine 01/26/22 Elsi Hernandez MD PhD [address] [facility] # LL [facility] [address] [place] [address] Radiation Oncologist Radiation Oncology 07/19/23 Mercedes Miranda MD [address] [facility] [address] [place] [address] Consulting Physician Radiation Oncology 12/13/23 documented as of this encounter
--- OUTSIDE RECORDS SUMMARY | 2025-01-30 08:09 | XMS_ITS ---
Author Organization [facility] Address [address] [place] [address] Care Team Providers Care Transmission Systems Operator Name Role Phone Naila Sinha MD Primary Care Provider [phone] Elsi Hernandez MD PhD Unavailable + Mercedes Miranda MD Unavailable [phone] Active Problems Problem Noted Date Diagnosed Date York's esophagus without dysplasia 08/20/2024 Hiatal hernia with GERD 07/26/2024 Encounter for antineoplastic chemotherapy 2022 Endometrial cancer 05/03/2023 Cancer Staging:Clinical stage from 05/24/2023:FIGO Stage IIIA(cT3a, cN0(sn), cM0) - Signed by Santiago Rojas MD on 07/17/2023 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 Other Current Plans rituximab (RITUXAN or biosimilar) Infusion* Plan Start Date:04/30/2022 Plan Provider:Cristofer Daly MD Linked Problems Polymyositis with myopathy ( HCC) Treatment Medications riTUXimab-pvvr (RUXIENCE)riT UXimab-pvvr (RUXIENCE) IVPB in 500 mL Past Treatment and Therapy Plans Oncology Chemotherapy Treatment Plan Name Start Date Discontinue Date Treatment Medications Discontinue Reason Plan Provider Cycles PACLItaxel / CARBOplatin (AUC 5) 21 Day Cycles - SALES AGENT [employer] INSURANCE 3 01/13/2024 CARBOplatin (by AUC:GOG) (PARAPLATIN)CA RBOplatin (PARAPLATIN) IVPB in 250 mL (by AUC: GOG)PACLitaxel (TAXOL)PACLIta xel (TAXOL) IVPB in 500 mL Therapy Complete Comfort Martínez MD 6 of 6 cycles started Oncology Supportive Care Plan Name Start Date Discontinue Date Treatment Medications Discontinue Reason Plan Provider IV Maintenance Therapy Plan 07/08/2023 07/20/2024 No medications scheduled. Therapy Complete Comfort Martínez MD Radiation Treatments * Course C1 Pelvis 202312/12/2023 - 12/19/2023 Treatment Period Energy Fraction Dose Fractions Total Dose Plans Planned PELVIS 12/12/2023 - 12/19/2023 500 5 / 2,500 Reference Points Delivered PTV_2500 12/12/2023 - 12/19/2023 2,500 Lifetime Dose Tracking * Chemical Lifetime Dose Automatic Entry Manual Entr y Fluoro Time 0.2 minutes 0.2 minutes 0 minutes Air kerma at the reference point (Ka,r) 2 mGy 2 mGy 0 mGy DLP 5,346 mGycm 5,346 mGycm 0 mGycm
--- OUTSIDE RECORDS SUMMARY | 2025-01-30 08:09 | XMS_ITS | Clinical Summary ---
Author Organization [facility] Address [address] [place] [address] Care Team Providers Care Winder Tender Name Role Phone Naila Sinha MD Primary Care Provider Elsi Hernandez MD PhD Unavailable + Mercedes Miranda MD Unavailable [phone] Allergies No known active allergies Medications multivitamin tabletIndications: Vitamin Deficiency Prevention Take 1 tablet by mouth early childhood teacher before breakfast Active polyethylene glycol (MIRALAX) 17 gram/dose bulk powder Take 17 g by mouth daily 510 g 3 Active lidocaine-prilocai ne (EMLA) creamIndications:A dministration of Local Anesthesia Apply topically as needed for pain 30 g 3 3 Active ondansetron (ZOFRAN) 8 mg tabletIndications: Endometrial cancer (HCC),Encounter for antineoplastic chemotherapy Take 1 tablet (8 mg total) by mouth every 8 (eight) hours as needed for nausea or vomiting 30 tablet 3 3 Active ibuprofen 200 mg tab/cap Take by mouth every 6 (six) hours as needed for pain Active alendronate (FOSAMAX) 70 mg tablet Take 1 tablet (70 mg total) by mouth every 7 days Take in the morning with a full glass of water, on an empty stomach, and do not take anything else by mouth or lie down for the next 30 min. 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 Allergic contact dermatitis 10/24/2015 Encounters Date Type Department Care Team Description 01/10/2025 Telephone [facility] [address] [facility] Advanced Medicine 13th [place] [address] Jaclyn Acosta RN 12/14/2024 Orders Only [facility] [address] [facility] Advanced [facility] 13th [place] [address] Jaclyn Acosta RN Endometrial cancer (HCC) (Primary Dx); Encounter for routine cancer follow-up 12/13/2024 11:20 AM CDT Office Visit [facility] Advanced Medicine Radiation Oncology [address] [place] [address] [place] [address] Shilpa Munoz PA Endometrial cancer (HCC); Personal history of irradiation 12/13/2024 9:26 AM CDT - 12/13/2024 11:59 PM CDT Hospital Encounter [facility] [address] [place] [address] Endometrial cancer (HCC); Personal history of irradiation Discharge Disposition: Discharge to home or self care from Last 3 Months Surgical History Surgery Date Site/Laterality Comments ARTHROSCOPIC REPAIR ACL Left 2017. last. 5 surgeries total WRIST SURGERY Right 2020 PORT PLACEMENT CHEST >5 YEARS 07/01/2023 N/A LAPAROSCOPIC TOTAL HYSTERECTOMY 05/03/2024 - 06/02/2024 endometrial cancer APPENDECTOMY HYSTERECTOMY UPPER GASTROINTESTINAL ENDOSCOPY Medical History Medical History Date Comments Arthritis Arthritis History of chemotherapy History of radiation therapy 02/2024 GERD (gastroesophageal reflux disease) Polymyositis (HCC) Cancer (HCC) York esophagus Family History Medical History Relation Name Comments Anesthesia problems Neg Hx Social History Tobacco Use Types Packs/Day Years Used Date Smoking Tobacco: Every Day Cigarettes Smokeless Tobacco: Never Tobacco Cessation:Ready to Q uit: No; Counseling Given: Yes AUDIT-C Answer Date Recorded Q1: How often [...] on file Legal Sex Female 4:57 AM LEATHER CLEANER Gender Identity Not on file Sexual Orientation Not on file Obstetrics History Para Term AB IAB SAB Ectopic Multiple Livin g Live Births 0 0 0 0 0 0 0 0 0 0 0 Last Filed Vital Signs Vital Sign Reading Time Taken Comments Blood Pressure 108/66 10/26/2024 1:07 PM LEATHER CLEANER Pulse 75 10/26/2024 1:07 PM LEATHER CLEANER Temperature 37 C (98.6 F) 10/26/2024 12:47 PM LEATHER CLEANER Respiratory Rate 13 10/26/2024 1:07 PM LEATHER CLEANER Oxygen Saturation 97% 10/26/2024 1:07 PM LEATHER CLEANER Inhaled Oxygen Concentration - - Weight 105.2 kg (231 lb 14.4 oz) 2024 10:28 AM CDT Height 167.6 cm (5' 6 ) 12/13/2024 10:2 8 AM CDT Body Mass Index 37.43 12/13/2024 10:28 AM CDT Plan of Treatment Scheduled Procedures Name Priority Associated Diagnoses Date/Ti me ESOPHAGOGASTRODUODENOSCOPY Open Access Hiatal hernia with GERD Health Maintenance Due Date Last Done Comments Breast Cancer Screening-Mammogram 1962 Colon Cancer Screening-Colonoscopy 1962 Depression Screening 1962 Hepatitis C Screening 1962 DTaP/Tdap/Td Vaccine (1 - Tdap) 1973 Hepatitis B Screening 1980 Regular Well Visit/Exam 18-64 1980 Pneumococcal vaccine <65 (1 of 2 - PCV) 1981 Zoster Vaccine (1 of 2) 2012 Covid-19 Vaccine (3 - season) 2024, 12/04/2020 Influenza Vaccine (Season Ended) 2025 Medical Devices Implanted Type Area Acid Polymerization Operator Device Identifier Shelf Expiration Date Model / Serial / Lot [employer] Xcela Power Port 8fr [id number] - [id number] Implanted:Qty: 1 on 07/01/2023 at [facility] [employer] 11/14/2027 [id number] / / [id number] Procedures Procedure Name Priority Date/Time Associated Diagnosis Comments CT CHEST ABDOMEN PELVIS W CONTRAST Schedule Routine, Read Routine (OP Routine) 12/13/2024 9:53 AM CDT Endometrial cancer (HCC) Personal history of irradiation POCT CREATININE - DEVICE Routine 12/13/2024 9:41 AM CDT from Last 3 Months Results * CT Chest Abdomen Pelvis W Contrast (12/13/2024 9:53 AM CDT) Anatomical Region Laterality Modality Body N/A Computed Tomogra phy 12/13/2024 10:3 0 AM CDT Impressions 12/13/2024 10:35 AM CDT 1. New compression deformity of the L5 vertebral body 2. No evidence of metastatic disease in the chest, abdomen, or pelvis. Dictated by: Herbert Albert MD The radiology attending physician has personally reviewed this study, and had reviewed and/or edited this written report and agrees with it. Electronically signed by: Anirudh Johnson M.D. Narrative 12/13/2024 10:35 AM CDT EXAMINATION: Computed tomography of the chest, abdomen and pelvis with intravenous contrast HISTORY: 64-year-old female with endometrial cancer status post chemotherapy and radiation TECHNIQUE: Transaxial computed tomographic images of the chest, abdomen and pelvis were obtained with intravenous contrast according to the standard protocol after the uneventful administration of 94 mL Opti-Ray 350 intravenous contrast. COMPARISON: CT 06/19/2024 FINDINGS: Chest: There is mild left basilar atelectasis. No pulmonary consolidation. No pleural effusion or pneumothorax. No suspicious pulmonary nodule. The heart size is normal. No pericardial effusion. A right internal jugular port catheter terminates in the superior cavoatrial junction. The thoracic aorta and main pulmonary artery are normal in caliber. There is a four-vessel aortic arch. The thyroid is normal. No supraclavicular, axillary, mediastinal, or hilar lymphadenopathy. Abdomen/Pelvis: No suspicious liver lesion. No biliary ductal dilation. The portal veins, superior mesenteric vein, and splenic vein are patent. The spleen, pancreas, and bilateral adrenal glands are normal. The kidneys enhance symmetrically without hydronephrosis. Redemonstrated small hiatal hernia with distal esophageal thickening, possibly related to reflux esophagitis. The duodenal sweep is normal. No small or large bowel dilation. There is extensive colonic diverticulosis without evidence of diverticulitis. Postsurgical changes of appendectomy. No ascites or pneumoperitoneum. There is mild bladder wall thickening and surrounding fat stranding, which may represent prior radiation change. The uterus and adnexa are surgically absent. A fiducial marker is seen within the vaginal cuff. There is calcified and noncalcified atherosclerotic plaque throughout the abdominal aorta and iliac vessels. No abdominal or pelvic lymphadenopathy. No suspicious osseous lesion. There is increased sclerosis of the previously seen L4 compression deformity with a new up to 50% compression deformity of the L5 vertebral body. Procedure Note Anirudh Johnson MD - 12/13/2024 EXAMINATION: Computed tomography of the chest, abdomen and pelvis with intravenous contrast HISTORY: 64-year-old female with endometrial cancer status post chemotherapy and radiation TECHNIQUE: Transaxial computed tomographic images of the chest, abdomen and pelvis were obtained with intravenous contrast according to the standard protocol after the uneventful administration of 94 mL Opti-Ray 350 intravenous contrast. COMPARISON: CT 06/19/2024 FINDINGS: Chest: There is mild left basilar atelectasis. No pulmonary consolidation. No pleural effusion or pneumothorax. No suspicious pulmonary nodule. The heart size is normal. No pericardial effusion. A right internal jugular port catheter terminates in the superior cavoatrial junction. The thoracic aorta and main pulmonary artery are normal in caliber. There is a four-vessel aortic arch. The thyroid is normal. No supraclavicular, axillary, mediastinal, or hilar lymphadenopathy. Abdomen/Pelvis: No suspicious liver lesion. No biliary ductal dilation. The portal veins, superior mesenteric vein, and splenic vein are patent. The spleen, pancreas, and bilateral adrenal glands are normal. The kidneys enhance symmetrically without hydronephrosis. Redemonstrated small hiatal hernia with distal esophageal thickening, possibly related to reflux esophagitis. The duodenal sweep is normal. No small or large bowel dilation. There is extensive colonic diverticulosis without evidence of diverticulitis. Postsurgical changes of appendectomy. No ascites or pneumoperitoneum. There is mild bladder wall thickening and surrounding fat stranding, which may represent prior radiation change. The uterus and adnexa are surgically absent. A fiducial marker is seen within the vaginal cuff. There is calcified and noncalcified atherosclerotic plaque throughout the abdominal aorta and iliac vessels. No abdominal or pelvic lymphadenopathy. No suspicious osseous lesion. There is increased sclerosis of the previously seen L4 compression deformity with a new up to 50% compression deformity of the L5 vertebral body. IMPRESSION: 1. New compression deformity of the L5 vertebral body 2. No evidence of metastatic disease in the chest, abdomen, or pelvis. Dictated by: Herbert Albert MD The radiology attending physician has personally reviewed this study, and had reviewed and/or edited this written report and agrees with it. Electronically signed by: Anirudh Johnson M.D. Shilpa [facility] IMG CT PROCEDURES Final Res ult * POCT creatinine (12/13/2024 9:41 AM CDT) Creatinine POC 0.9 0.6 - 1.1 mg/dL Blood 12/13/2024 9:41 AM CDT 12/13/2024 9:41 AM CDT Notinfile Unknown LAB POCT ORDERABLES - DEVICE F inal Result [facility] Department [place] [address] from Last 3 Months Insurance [facility] CHO[facility] PLUS [facility] CHOICE PLUS Advance Directives For more information, please contact: [phone] Documents on File Type Date Recorded Patient Legal Counsel Expl anation Power of Snack Bar Cook 08/10/2024 1:02 PM * Full Code (Latest Code Status on File) Date Activated Date Inactivated Comments 10/26/2024 11:36 AM 10/26/2024 5:33 PM * Full Code Date Activated Date Inactivated Comments 08/10/2024 1:17 PM 08/10/2024 7:16 PM * Full Code Date Activated Date Inactivated Comments 07/01/2023 9:13 AM 07/02/2023 4:47 AM * Full Code Date Activated Date Inactivated Comments 05/24/2023 1:39 PM 05/24/2023 7:21 PM Care Teams Winder Tender Relationship Specialty Start Date End Date Naila Sinha MD PCP - General Family Medicine 01/26/22 Elsi Hernandez MD PhD [address] [facility] [address] [place] [address] Radiation Oncologist Radiation Oncology 07/19/23 Mercedes Miranda MD [address] [facility] [address] [place] [address] Consulting Physician Radiation Oncology 12/13/23
--- OUTSIDE RECORDS SUMMARY | 2025-01-30 08:09 | XMS_ITS | Referral Summary ---
Author Organization [facility] Address [address] [place] [address] Care Team Providers Care Veterinarian Assistant Name Role Phone Naila Sinha MD Primary Care Provider [phone] Elsi Hernandez MD PhD Unavailable + Mercedes Miranda MD Unavailable [phone] Encounters Date Type Department Care Team Description 01/10/2025 Telephone [facility] Obstetrics and Gynecology [address] [facility] 13th [place] [phone] Jaclyn Acosta RN 12/14/2024 Orders Only [facility] Obstetrics and Gynecology [address] [facility] 13th [place] [phone] Jaclyn Acosta, RN Endometrial cancer (HCC) (Primary Dx); Encounter for routine cancer follow-up 12/13/2024 11:20 AM CDT Office Visit [facility] Radiation Oncology [address] [facility] [place] [address] Shilpa Munoz PA Endometrial cancer (HCC); Personal history of irradiation 12/13/2024 9:26 AM CDT - 12/13/2024 11:59 PM CDT Hospital Encounter [facility] [address] [place] [address] Endometrial cancer (HCC); Personal history of irradiation Discharge Disposition: Discharge to home or self care from Last 3 Months Allergies No known active allergies Medications multivitamin tabletIndications: Vitamin Deficiency Prevention Take 1 tablet by mouth roasterman before breakfast Active polyethylene glycol (MIRALAX) 17 [...] with myopathy 04/15/2022 Allergic contact dermatitis 10/24/2015 Social History Tobacco Use Types Packs/Day Years [...] on file 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 Gender Identity Not on file Sexual Orientation Not on file Last Filed Vital Signs Vital Sign Reading Time Taken Comments Blood Pressure 108/66 10/26/2024 1:07 PM RUG REPAIRER Pulse 75 10/26/2024 1:07 PM RUG REPAIRER Temperature 37 C (98.6 F) 10/26/2024 12:47 PM RUG REPAIRER Respiratory Rate 13 10/26/2024 1:07 PM RUG REPAIRER Oxygen Saturation 97% 10/26/2024 1:07 PM RUG REPAIRER Inhaled Oxygen Concentration - - Weight 105.2 kg (231 lb 14.4 oz) 2024 10:28 AM CDT Height 167.6 cm (5' 6 ) 12/13/2024 10:2 8 AM CDT Body Mass Index 37.43 12/13/2024 10:28 AM CDT Plan of Treatment Scheduled Procedures Name Priority Associated Diagnoses Date/Ti me ESOPHAGOGASTRODUODENOSCOPY Open Access Hiatal hernia with GERD Medical Devices Implanted Type Area Drapery Cutter Device Identifier Shelf Expiration Date Model / Serial / Lot [employer] Xcela Power Port 8fr [id number] - [id number] Implanted:Qty: 1 on 07/01/2023 at [facility] [employer] 11/14/2027 [id number] / / [id number] Procedures Procedure Name Priority Date/Time Associated Diagnosis [...] it. Electronically signed by: Anirudh Johnson M.D. us Shilpa ASCENCIO IMG CT PROCEDURES Final Res ult * POCT creatinine (12/13/2024 9:41 AM CDT) Creatinine POC 0.9 0.6 - 1.1 mg/dL Blood 12/13/2024 9:41 AM CDT 12/13/2024 9:41 AM CDT us Notinfile Unknown LAB POCT ORDERABLES - DEVICE F inal [facility] Department [place] [address] from Last 3 Months Insurance [facility] [place] [address] Advance Directives For more information, please contact: [phone] Documents on File Type Date Recorded Patient Child Care Lead Teacher Expl anation Power of Duck Bill Operator 08/10/2024 1:02 PM * Full Code (Latest [...] 1:39 PM 05/24/2023 7:21 PM Care Teams Veterinarian Assistant Relationship Specialty Start Date End Date Naila Sinha MD PCP - General Family Medicine 01/26/22 Elsi Hernandez MD PhD [address] [facility] [address] LL LL [address] [place] [address] Radiation Oncologist Radiation Oncology 07/19/23 Mercedes Miranda MD [address] [facility] [address] [place] [address] Consulting Physician Radiation Oncology 12/13/23
[2025-01-31 11:48] LABS: CA-125 9 U/mL (<35)
== END 2025-01-30 08:02 | disposition home or self-care (01) ==
LOC: ANHGOSHLAB 08:05
PROVIDERS: PCP Family Medicine
DX: C54.1 Malignant neoplasm of endometrium (principal); Z08 Encounter for follow-up examination after completed treatment for malignant neoplasm
CPT/HCPCS: 36415; 86304

== ENCOUNTER 2025-05-16 09:05 | Outpatient (CLI) | payer OTHER, SELFPAY ==
--- OUTSIDE RECORDS SUMMARY | 2025-05-16 09:15 | XMS_ITS | Clinical Summary ---
Author Organization [facility] Address [facility] [place] [address] Care Team Providers Care Manager Lan Name Role Phone Naila Sinha MD Primary Care Provider [phone] Elsi Hernandez MD PhD Unavailable + Mercedes Miranda MD Unavailable [phone] Allergies No known active allergies Medications multivitamin tabletIndications: Vitamin Deficiency Prevention Take 1 tablet by mouth instructor hairspring before breakfast Active polyethylene glycol (MIRALAX) 17 gram/dose bulk powder Take 17 g by mouth daily 510 g 3 Active lidocaine-prilocai ne (EMLA) creamIndications:A dministration of Local Anesthesia Apply topically as needed for pain 30 g 3 3 Active ondansetron (ZOFRAN) 8 mg tabletIndications: Endometrial cancer,Encounter for antineoplastic chemotherapy Take 1 tablet (8 [...] Encounters Date Type Department Care Team Description 05/06/2025 Telephone [facility] Obstetrics and Gynecology [address] [facility] Advanced Medicine 13th [place] [address] Jaclyn Acosta RN 05/06/2025 Orders Only [facility] Obstetrics and Gynecology [address] [facility] Medicine 13th [place] [address] Jaclyn Acosta, RN Encounter for routine cancer follow-up (Primary Dx); Endometrial cancer (HCC) from Last 3 Months Surgical History Surgery [...] therapy 02/2024 GERD (gastroesophageal reflux disease) 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 Family History Medical [...] on file 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 Gender Identity Not on file Sexual Orientation Not on file Obstetrics History Para Term AB IAB SAB Ectopic Multiple Livin g Live Births 0 0 0 0 0 0 0 0 0 0 0 Last Filed Vital Signs Vital Sign Reading Time Taken Comments Blood Pressure 135/88 02/08/2025 11:57 AM CDT Pulse 95 02/08/2025 11:57 AM CDT Temperature 37 C (98.6 F) 10/26/2024 12:47 PM TRUCK CRANE OPERATOR HELPER Respiratory Rate 13 10/26/2024 1:07 PM TRUCK CRANE OPERATOR HELPER Oxygen Saturation 95% 02/08/2025 11: 57 AM CDT Inhaled Oxygen Concentration - - Weight 102.6 kg (226 lb 4.8 oz) 025 11:57 AM CDT Height 167.6 cm (5' 6) 12/13/2024 10:2 8 AM CDT Body Mass Index 36.53 12/13/2024 10:28 AM CDT Plan of Treatment [...] of 2) 2012 Covid-19 Vaccine (3 - Pfizer risk series) 01/24/2021 12/27/2020, 12/04/2020 Influenza Vaccine (#1) 2025 Medical Devices Implanted Type Area Barrel Cap Setter Device Identifier Shelf Expiration Date Model / Serial / Lot [employer] Xcela Power Port 8fr [id number] - [id number] Implanted:Qty: 1 on 07/01/2023 at [facility] [employer] 11/14/2027 [id number] / / [id number] Insurance [facility] PLUS [facility] Advance Directives For more information, please contact: [phone] Documents on File Type Date Recorded Patient Cardroom Attendant Expl anation Power of Facilities Engineering Manager 08/10/2024 1:02 PM * Full Code (Latest [...] 1:39 PM 05/24/2023 7:21 PM Care Teams Manager Lan Relationship Specialty Start Date End Date Naila Sinha MD PCP - General Family Medicine 01/26/22 Elsi Hernandez MD PhD [address] [facility] # LL LL [address] [place] [address] Radiation Oncologist Radiation Oncology 07/19/23 Mercedse Miranda MD [address] [facility] [address] [place] [address] Consulting Physician Radiation Oncology 12/13/23
--- OUTSIDE RECORDS SUMMARY | 2025-05-16 09:15 | XMS_ITS | Encounter Summary ---
Author Organization 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 [address] [place] [address] Radiation Oncologist Radiation Oncology 07/19/23 Mercedes Miranda MD [address] [facility] [address] [place] [address] Consulting Physician Radiation Oncology 12/13/23 documented as of this encounter
--- OUTSIDE RECORDS SUMMARY | 2025-05-16 09:15 | XMS_ITS ---
Author Organization [facility] Address [address] [place] [address] Care Team Providers Care Golf Course Laborer Name Role Phone Naila Sinha MD Primary Care Provider [phone] Elsi Hernandez MD PhD Unavailable + Mercedes Miranda MD Unavailable [phone] Active Problems Problem Noted Date Diagnosed Date [...] Provider:Comfort Martínez MD Linked Problems Endometrial cancer Treatment Medications No medications scheduled. Other Current [...] CARBOplatin (AUC 5) 21 Day Cycles - GENETIC TECHNOLOGIST 3 01/13/2024 CARBOplatin (by AUC:GOG) (PARAPLATIN)CA RBOplatin (PARAPLATIN) IVPB in 250 mL (by AUC: GOG)PACLitaxel (TAXOL)PACLIta xel (TAXOL) IVPB in 500 mL Therapy Complete Comfort Martínez MD 6 of 6 cycles started Oncology Supportive Care Therapy Plan Plan Name Start Date Discontinue Date Treatment [...]
--- OUTSIDE RECORDS SUMMARY | 2025-05-16 09:15 | XMS_ITS | Encounter Summary ---
Author Organization [facility] Address [address] [place] [address] Phone Care Team Providers Care Cash Room Clerk Name Role Phone Naila Sinha MD Primary Care Provider [phone] Elsi Hernandez MD PhD Unavailable + Mrecedes Miranda MD Unavailable [phone] Encounter Details Date Type Department Care Team (Late st Contact Info) Description 10/24/2024 Documentation [facility] ([facility]) [place] [facility] [address] [place] [address] [facility] 12th Floor, [place] [address] Blake Valentin BS Social History [...] on file 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 Gender Identity Not on file Sexual Orientation Not on file documented as of this encounter Functional Status documented as of this encounter Plan of Treatment Scheduled Procedures Name Priority Associated Diagnoses Date/Ti ks ESOPHAGOGASTRODUODENOSCOPY Open Access Hiatal hernia with GERD documented as of this encounter Visit Diagnoses Not on filedocumented in this encounter Care Teams Cash Room Clerk Relationship Specialty Start Date End Date Naila Sinha MD PCP - General Family Medicine 01/26/22 Elsi Hernandez MD PhD [address] [facility] [address] [place] [address] Radiation Oncologist Radiation Oncology 07/19/23 Mercedes Miranda MD [address] [facility] [address] [place] [address] Consulting Physician Radiation Oncology 12/13/23 documented as of this encounter
== END 2025-05-16 09:06 | disposition home or self-care (01) ==
LOC: ANHGOSHLAB 09:07
PROVIDERS: PCP Family Medicine
DX: C54.1 Malignant neoplasm of endometrium (principal)
CPT/HCPCS: 86304

== ENCOUNTER 2025-08-01 12:37 | Outpatient (CLI) | payer OTHER, SELFPAY ==
--- NOTE | ~2025-08-01 | MR_ITS ---
EXAMINATION: MR lumbar spine wo con DATE: 08/01/2025 13:01 INDICATION: Wedge compression fracture of fourth lumbar vertebra. Low back pain. TECHNIQUE: Magnetic resonance imaging (MRI) of the lumbar spine was performed without intravenous contrast. Sequences included sagittal T2-weighted FSE, sagittal T2-weighted FS FSE, sagittal T1-weighted FSE, and axial T2-weighted FSE. COMPARISON: Lumbar spine MRI 01/08/2025 FINDINGS: There is a degrees levocurvature of lumbar spine. There is a burst fracture of L4 with 2/5 loss of height, retropulsion of bone 5 mm into central spinal canal, and edema-like marrow signal intensity. There is a burst fracture of L5 with 2/5 loss of height, retropulsion of bone 4 mm into central spinal canal, and edema-like marrow signal intensity. There is mildly decreased disc height at L5-S1. Epidural lipomatosis is noted. The distal spinal cord signal intensity is normal. The conus medullaris is at T12-L1. The following disc levels are specifically discussed: L1-L2: There is a central protrusion. There is mild bilateral facet joint osteoarthritis. There is no neural foraminal stenosis. There is mild central canal stenosis. L2-L3: There is a left foraminal protrusion. There is moderate bilateral facet joint osteoarthritis. There is mild left neural foraminal stenosis. There is no central canal stenosis. L3-L4: The disc is bulging. There is severe bilateral facet joint osteoarthritis. There is mild bilateral neural foraminal stenosis. There is moderate central canal stenosis. L4-L5: The disc is bulging. There is severe bilateral facet joint osteoarthritis. There is mild bilateral neural foraminal stenosis. There is mild central canal stenosis. L5-S1: The disc is bulging and has an annular fissure. There is severe right and moderate left facet joint osteoarthritis. There is mild bilateral neural foraminal stenosis. There is mild central canal stenosis. IMPRESSION: 1. L4 and L5 burst fractures, stable from 01/08/2025 with persistent edema-like marrow signal intensity. 2. Moderate lumbar spondylosis, stable from 01/08/2025. Reviewed, dictated and finalized at location E. IMPRESSION: 1. L4 and L5 burst fractures, stable from 01/08/2025 with persistent edema-like m arrow signal intensity. 2. Moderate lumbar spondylosis, stable from 01/08/2025.
== END 2025-08-01 12:38 | disposition home or self-care (01) ==
LOC: MICIMG 12:38
PROVIDERS: PCP Physician Assistant; Visit Provider Physician Assistant
DX: S32.040A Wedge compression fracture of fourth lumbar vertebra, initial encounter for closed fracture (principal); M43.06 Spondylolysis, lumbar region; X58.XXXA Exposure to other specified factors, initial encounter
CPT/HCPCS: 72148

== ENCOUNTER 2025-08-16 08:02 | Outpatient (CLI) | payer OTHER, SELFPAY ==
--- OUTSIDE RECORDS SUMMARY | 2025-08-16 08:05 | XMS_ITS | Clinical Summary ---
Author Organization [facility] Address [address] [place] [address] Care Team Providers Care Director Trial Name Role Phone Naila Sinha MD Primary Care Provider Elsi Hernandez MD PhD Unavailable + Mercedes Miranda MD Unavailable [phone] Allergies No known active allergies Medications multivitamin tabletIndications: Vitamin Deficiency Prevention Take 1 tablet by mouth central sterile tech before breakfast Active polyethylene glycol (MIRALAX) 17 [...] or vomiting 30 tablet 3 3 Active alendronate (FOSAMAX) 70 mg tablet Take 1 tablet (70 mg total) by mouth every 7 days Take in the morning with a full glass of water, on an empty stomach, and do not take anything else by mouth or lie down for the next 30 min. 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 Allergic contact dermatitis 10/24/2015 Encounters Date Type Department Care Team Description 08/15/2025 Telephone [facility] [address] [place] [address] [place] [phone] Chao York PA 08/13/2025 12:00 PM DIGITAL MARKETING ASSISTANT - 08/13/2025 11:59 PM DIGITAL MARKETING ASSISTANT Hospital Encounter [facility] [address] [place] [address] Arrived Discharge Disposition: Discharge to home or self care 07/16/2025 Telephone [facility] Residency Clinic at [address] [place] [phone] Naila Sinha MD Medical Question/Miscellane ous 07/12/2025 10:00 AM CDT Office Visit [facility] [address] [place] [address] [place] [phone] Chao York PA Compression fracture of L4 vertebra, initial encounter (HCC) (Primary Dx) 07/12/2025 9:26 AM CDT - 07/12/2025 11:59 PM CDT Hospital Encounter [facility] ([facility]) [address] [place] [address] Discharge Disposition: Discharge to home or self care 07/12/2025 9:26 AM CDT - 07/12/2025 11:59 PM CDT Hospital Encounter [facility] ([facility]) [address] [place] [address] Discharge Disposition: Discharge to home or self care 07/12/2025 9:25 AM CDT - 07/12/2025 11:59 PM CDT Hospital Encounter [facility] ([facility]) [address] [place] [address] Discharge Disposition: Discharge to home or self care 07/12/2025 7:47 AM CDT - 07/12/2025 11:59 PM CDT Hospital Encounter [facility] [address] [facility] [address] [place] [address] Lumbar pain Discharge Disposition: Discharge to home or self care 07/12/2025 Orders Only [facility] Office [facility] [address] [place] [address] Chao York PA 07/09/[address] [facility] [address] [place] [address] Chao York PA Lumbar pain (Primary Dx) 07/05/2025 Telephone [facility] Medicine Scheduling [address] [place] [address] Cyn Mc 06/20/2025 8:40 AM CDT Office Visit [facility] Radiation Oncology [address] [facility] [place] [address] Shilpa Munoz PA Endometrial cancer 05/25/2025 Results Follow-Up [facility] [address] [facility] 13th [place] [address] CT Chest Abdomen Pelvis W Contrast 05/24/2025 9:00 AM CDT Office Visit [facility] [address] [facility] 13th [place] [address] [place] [address] Comfort Martínez MD Encounter for routine cancer follow-up (Primary Dx); Endometrial cancer 05/24/2025 8:30 AM CDT Clinical Support [facility] [place] [facility] ([facility]) [address] [place] [address] Endometrial cancer (Primary Dx) 05/24/2025 6:46 AM CDT - 05/24/2025 11:59 PM CDT Hospital Encounter [facility] [address] [place] [address] Comfort Martínez MD Encounter for routine cancer follow-up Discharge Disposition: Discharge to home or self care 05/24/2025 Telephone [facility] [address] [facility] Advanced [facility] 13th [place] [address] Jaclyn Acosta RN 05/24/2025 Orders Only [facility] [address] [facility] 13th [place] [address] [place] [address] Jaclyn Acosta RN Endometrial cancer (Primary Dx); Pre-procedure lab exam 05/17/2025 Orders Only OB ONCOLOGY Jaclyn Acosta, RN from Last 3 Months Surgical History Surgery [...] on file Legal Sex Female 4:57 AM DIGITAL MARKETING ASSISTANT Gender Identity Not on file Sexual Orientation Not on file Obstetrics History Para Term AB IAB SAB Ectopic Multiple Livin g Live Births 0 0 0 0 0 0 0 0 0 0 0 Last Filed Vital Signs Vital Sign Reading Time Taken Comments Blood Pressure 134/92 05/24/2025 9:12 AM CDT Pulse 84 05/24/2025 9:12 AM CDT Temperature 36.6 C (97.9 F) 05/24/2025 9:12 AM CDT Respiratory Rate 16 05/24/2025 9:12 AM CDT Oxygen Saturation 99% 05/24/2025 9:12 AM CDT Inhaled Oxygen Concentration - - Weight 99.8 kg (220 lb) 07/12/2025 8:43 AM CDT Height 167.6 cm (5' 6) 07/12/2025 8:43 AM CDT Body Mass Index 35.51 07/12/2025 8:43 AM CDT Plan of Treatment Scheduled Procedures [...] (#1) 2025 Medical Devices Implanted Type Area Test Engineering Technician Device Identifier Shelf Expiration Date Model / Serial / Lot [employer] Xcela Power Port 8fr [id number] - [id number] Implanted:Qty: 1 on 07/01/2023 at [facility] [employer] 11/14/2027 [id number] / / [id number] Procedures Procedure Name Priority Date/Time Associated Diagnosis Comments NEURO MR OUTSIDE REFERENCE Routine 08/13/2025 12:00 PM DIGITAL MARKETING ASSISTANT NEURO MR OUTSIDE REFERENCE Routine 07/12/2025 9:[address] OUTSIDE REFERENCE Routine 07/12/2025 9:26 AM CDT NEURO MR OUTSIDE REFERENCE Routine 07/12/2025 9:25 AM CDT XR SCOLIOSIS 6 OR MORE VIEWS Schedule Routine, Read Routine (OP Routine) 07/12/2025 7:58 AM CDT Lum[address] CHEST ABDOMEN PELVIS W CONTRAST Schedule Routine, Read Routine (OP Routine) 05/24/2025 7:21 AM CDT Encounter for routine cancer follow-up SCAN - LABS 05/17/2025 9:09 AM CDT from Last 3 Months Results * Neuro MR Outside Reference (08/13/2025 12:00 PM DIGITAL MARKETING ASSISTANT) Impressions [facility] - 08/13/2025 12:00 PM DIGITAL MARKETING ASSISTANT These images are for Reference purposes only and have not been reviewed by [facility]. There will be no report generated by a [facility] Radiologist. Narrative [facility] - 08/13/2025 12:00 PM DIGITAL MARKETING ASSISTANT EXAMINATION: Images For Reference Purposes Only Chao ASCENCIO IMG MRI PROCEDURES Fin al Result [facility] * Neuro MR Outside Reference (07/12/2025 9:26 AM CDT) Impressions [facility] - 07/12/2025 9:26 AM CDT These images are for Reference purposes only and have not been reviewed by [facility]. There will be no report generated by a [facility] Radiologist. Narrative [facility] - 07/12/2025 9:26 AM CDT EXAMINATION: Images For Reference Purposes Only us Chao Barrettrow PA IMG MRI PROCEDURES Fin al Result Performing Organization Address [facility] Phone Number [email or web address] * Neuro CT Outside Reference (07/12/2025 9:26 AM CDT) Impressions [facility] - 07/12/2025 9:26 AM CDT These images are for Reference purposes only and have not been reviewed by [facility]. There will be no report generated by a [facility] Radiologist. Narrative [facility] - 07/12/2025 9:26 AM CDT EXAMINATION: Images For Reference Purposes Only us Chao Barrettruth ASCENCIO IMG CT PROCEDURES Clementina l Result Performing Organization Address [facility] Phone Number [facility] * Neuro MR Outside Reference (07/12/2025 9:25 AM CDT) Impressions [facility] - 07/12/2025 9:25 AM CDT These images are for Reference purposes only and have not been reviewed by [facility]. There will be no report generated by a [facility] Radiologist. Narrative [facility] - 07/12/2025 9:25 AM CDT EXAMINATION: Images For Reference Purposes Only Chao Blakenoé ASCENCIO IMG MRI PROCEDURES Fin al Result Performing Organization Address [facility] de Phone Number [facility] * XR Scoliosis 6 or More Views (07/12/2025 7:58 AM CDT) Anatomical Region Laterality Modality Spine N/A Computed Radiogr aphy 07/12/2025 8:22 AM CDT Impressions 07/12/2025 8:22 AM CDT 1. Mild levoscoliosis of the thoracolumbar spine with moderate to severe multilevel lumbar degenerative disc disease Electronically signed by: J Luis Jon MD Narrative 07/12/2025 8:22 AM CDT EXAMINATION: XR SCOLIOSIS 6 OR MORE VIEWS HISTORY: Back pain. FINDINGS: No comparison. Mild levoscoliosis of the thoracolumbar spine centered at L2. Mild left coronal and positive sagittal imbalance. No significant pelvic obliquity. Multilevel lumbar degenerative disc disease greatest and moderate to severe at L4-L5. Vertebral body heights preserved. Sagittal alignment is normal in neutral position. No abnormal motion with bending. Moderate to severe multilevel facet osteoarthritis. Atherosclerotic ossifications. Procedure Note J Luis Jon MD - 07/12/2025 EXAMINATION: XR SCOLIOSIS 6 OR MORE VIEWS HISTORY: Back pain. FINDINGS: No comparison. Mild levoscoliosis of the thoracolumbar spine centered at L2. Mild left coronal and positive sagittal imbalance. No significant pelvic obliquity. Multilevel lumbar degenerative disc disease greatest and moderate to severe at L4-L5. Vertebral body heights preserved. Sagittal alignment is normal in neutral position. No abnormal motion with bending. Moderate to severe multilevel facet osteoarthritis. Atherosclerotic ossifications. IMPRESSION: 1. Mild levoscoliosis of the thoracolumbar spine with moderate to severe multilevel lumbar degenerative disc disease Electronically signed by: J Luis Jon MD us Chao ASCENCIO IMG XR PROCEDURES Clementina l Result * CT Chest Abdomen Pelvis W Contrast (05/24/2025 7:21 AM CDT) Anatomical Region Laterality Modality Body N/A Computed Tomogra phy 05/24/2025 9:14 AM CDT Impressions 05/24/2025 1:03 PM CDT 1. No evidence of metastatic disease in the chest, abdomen, or pelvis. 2. New configuration of the descending colon with possible mesenteric swirling is likely related to redundant colon loops without signs of obstruction. Correlate for abdominal pain/symptoms of volvulus. Dictated by: Silver Nath MD The radiology attending physician has personally reviewed this study, and had reviewed and/or edited this written report and agrees with it. Electronically signed by: Abimbola Allen M.D. Narrative 05/24/2025 1:03 PM CDT EXAMINATION: CT of the chest, abdomen, and pelvis with intravenous contrast. HISTORY: Endometrial cancer. TECHNIQUE: Transaxial computed tomographic images of the chest, abdomen, and pelvis were obtained after the uneventful administration of 100 mL of Optiray 350 intravenous contrast according to the standard protocol. COMPARISON: Multiple prior studies most recently CT dated 12/13/2024. FINDINGS: CHEST: Mild bibasilar atelectasis. Unchanged 3 mm groundglass kenrick-fissural nodule in the right upper lobe is stable dating back to 07/01/2023 and likely benign. No new or enlarging pulmonary nodules. No pneumothorax or pleural effusion. Right internal jugular approach chest port with tip in the right atrium. Heart size is normal without pericardial effusion. Coronary vascular calcifications. Aortic annular calcifications. Normal caliber intrathoracic aorta and great vessels. The left vertebral artery arises directly from the aortic arch. No supraclavicular, axillary, or mediastinal lymphadenopathy. Tiny hiatal hernia. ABDOMEN AND PELVIS: No suspicious hepatic mass. Patent portal venous vasculature. Normal gallbladder. No intrahepatic or extrahepatic biliary ductal dilation. Normal spleen, pancreas, and adrenal glands. Kidneys enhance symmetrically without hydronephrosis. Normal caliber small and large bowel without evidence of obstruction or bowel wall thickening. New configuration of the descending colon with possible mesenteric swirling. Scattered colonic diverticula without diverticulitis. Normal urinary bladder. Hysterectomy. No suspicious adnexal mass. No ascites or organized fluid collection. No pneumoperitoneum. No omental or peritoneal nodularity. Tiny fat-containing umbilical hernia. Normal caliber intra-abdominal aorta with moderate calcified atherosclerosis. Unchanged L4 and L5 compression deformities. No suspicious osseous lesions. Procedure Note Abimbola Allen MD - 05/24/2025 EXAMINATION: CT of the chest, abdomen, and pelvis with intravenous contrast. HISTORY: Endometrial cancer. TECHNIQUE: Transaxial computed tomographic images of the chest, abdomen, and pelvis were obtained after the uneventful administration of 100 mL of Optiray 350 intravenous contrast according to the standard protocol. COMPARISON: Multiple prior studies most recently CT dated 12/13/2024. FINDINGS: CHEST: Mild bibasilar atelectasis. Unchanged 3 mm groundglass kenrick-fissural nodule in the right upper lobe is stable dating back to 07/01/2023 and likely benign. No new or enlarging pulmonary nodules. No pneumothorax or pleural effusion. Right internal jugular approach chest port with tip in the right atrium. Heart size is normal without pericardial effusion. Coronary vascular calcifications. Aortic annular calcifications. Normal caliber intrathoracic aorta and great vessels. The left vertebral artery arises directly from the aortic arch. No supraclavicular, axillary, or mediastinal lymphadenopathy. Tiny hiatal hernia. ABDOMEN AND PELVIS: No suspicious hepatic mass. Patent portal venous vasculature. Normal gallbladder. No intrahepatic or extrahepatic biliary ductal dilation. Normal spleen, pancreas, and adrenal glands. Kidneys enhance symmetrically without hydronephrosis. Normal caliber small and large bowel without evidence of obstruction or bowel wall thickening. New configuration of the descending colon with possible mesenteric swirling. Scattered colonic diverticula without diverticulitis. Normal urinary bladder. Hysterectomy. No suspicious adnexal mass. No ascites or organized fluid collection. No pneumoperitoneum. No omental or peritoneal nodularity. Tiny fat-containing umbilical hernia. Normal caliber intra-abdominal aorta with moderate calcified atherosclerosis. Unchanged L4 and L5 compression deformities. No suspicious osseous lesions. IMPRESSION: 1. No evidence of metastatic disease in the chest, abdomen, or pelvis. 2. New configuration of the descending colon with possible mesenteric swirling is likely related to redundant colon loops without signs of obstruction. Correlate for abdominal pain/symptoms of volvulus. Dictated by: Silver Nath MD The radiology attending physician has personally reviewed this study, and had reviewed and/or edited this written report and agrees with it. Electronically signed by: Abimbola Allen M.D. Comfort Martníez MD IMG CT PROCEDURES Final Result * SCAN - LABS (05/17/2025 9:09 AM CDT) Jaclyn Acosta RN Final Resul t from Last 3 Mon[address] Insurance [facility] CHOICE [facility] [facility] HMO/PPO Address: [place] [address] [facility] CHOICE 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
--- OUTSIDE RECORDS SUMMARY | 2025-08-16 08:05 | XMS_ITS | Encounter Summary ---
Author Organization [facility] Healthcare Address [address] [place] [address] Care Team Providers Care Egg Breaking Machine Operator Name Role Phone Naila Sinha MD Primary Care Provider [phone] Elsi Hernandez MD PhD Unavailable + Mercedes Miranda MD Unavailable [phone] Reason for Visit * Reason Onset Date Comments Medical Question/Miscellaneous 07/16/2025 Encounter Details Date Type Department Care Team (Late st Contact Info) Description 07/16/2025 Telephone [facility] Medical Group Residency Clinic at [address] [place] [address] Naila Sinha MD [address] [place] [address] [address] [place] [address] Medical Question/Miscellaneous Social History Tobacco Use Types Packs/Day Years [...] on file Legal Sex Female 4: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 CS provided all information. Does message need to be routed? No documented in this encounter Plan of Treatment Scheduled Procedures Name Priority Associated Diagnoses Date/Ti ma ESOPHAGOGASTRODUODENOSCOPY Open Access Hiatal hernia with GERD documented as of this encounter Visit Diagnoses Not on filedocumented in this encounter Care Teams Egg Breaking Machine Operator Relationship Specialty Start Date End Date Naila Sinha MD PCP - General Family Medicine 01/26/22 Elsi Hernandez MD PhD [address] [facility] [address] [facility] [address] [place] [address] Radiation Oncologist Radiation Oncology 07/19/23 Mercedes Miranda MD [address] [facility] [address] [place] [address] Consulting Physician Radiation Oncology 12/13/23 documented as of this encounter
--- OUTSIDE RECORDS SUMMARY | 2025-08-16 08:05 | XMS_ITS ---
Author Organization [facility] Address [address] [place] [address] Care Team Providers Care Admissions Rn Name Role Phone Naila Sinha MD Primary Care Provider [phone] Elsi Hernandez MD PhD Unavailable + Mercedes Miranda MD Unavailable [phone] Active Problems Problem Noted Date Diagnosed Date [...] CARBOplatin (AUC 5) 21 Day Cycles - PRODUCT MARKETING SPECIALIST 3 01/13/2024 CARBOplatin (by AUC:GOG) (PARAPLATIN)CA RBOplatin [...] 2 mGy 2 mGy 0 mGy DLP 6,345 mGycm 6,345 mGycm 0 mGycm
--- OUTSIDE RECORDS SUMMARY | 2025-08-16 08:05 | XMS_ITS | Encounter Summary ---
Author Organization [facility] Address [address] [place] [address] Phone Care Team Providers Care Wool Shearing Supervisor Name Role Phone Naila Sinha MD Primary Care Provider [phone] Elsi Hernandez MD PhD Unavailable + Mercedes Miranda MD Unavailable [phone] Encounter Details Date Type Department Care Team (Late st Contact Info) Description 08/15/2025 Telephone [facility] Medicine Neurosurgery [address] [facility] Medical Office Building [address] [place] [address] Chao York PA [address] [place] [address] Social History Tobacco Use Types Packs/Day Years [...] on file Legal Sex Female 4:57 AM SIX SIGMA BLACK TRAINER Gender Identity Not on file Sexual Orientation Not on file documented as of this encounter Miscellaneous Notes * Telephone Encounter - Chao York PA - 08/15/2025 12:46 PM SIX SIGMA BLACK TRAINER Talked to patient, still showing edema in the bones, patient considering kyphoplasty in his going to see a local pain management group to discuss kyphoplasty. She will plan to call us if anything changes or if she would like to get back to see us earlier Chao York PA-C [facility] Neurosurgery SIGMA BLACK TRAINER documented in this encounter Plan of Treatment Scheduled Procedures Name Priority Associated Diagnoses Date/Ti me ESOPHAGOGASTRODUODENOSCOPY Open Access Hiatal hernia with GERD documented as of this encounter Visit Diagnoses Not on filedocumented in this encounter Care Teams Wool Shearing Supervisor Relationship Specialty Start Date End Date Naila Sinha MD PCP - General Family Medicine 01/26/22 Elsi Hernandez MD PhD [address] [facility] [address] [place] [address] Radiation Oncologist Radiation Oncology 07/19/23 Mercedes Miranda MD [address] [facility] [address] [place] [address] Consulting Physician Radiation Oncology 12/13/23 documented as of this encounter
--- OUTSIDE RECORDS SUMMARY | 2025-08-16 08:05 | XMS_ITS | Encounter Summary ---
Author Organization [facility] Address [address] [place] [address] Phone Care Team Providers Care Flexo Operator Name Role Phone Naila Sinha MD Primary Care Provider [phone] Elsi Hernandez MD PhD Unavailable + Mercedes Miranda MD Unavailable [phone] Encounter Details Date Type Department Care Team (Late st Contact Info) Description 10/24/2024 Documentation [facility] ([facility]) [facility] [address] [place] [address] Advanced Medicine 12th Floor, [place] [address] Blake Valentin BS Social History [...] on file 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 Gender Identity Not on file Sexual Orientation Not on file documented as of this encounter Functional Status * Question Answer Date of Assessment Author BP Location Right arm 10/26/2024 1:07 PM Samantha Shane RN BP Method Automatic 10/26/2024 1:07 PM Samantha Shane RN MAP (mmHg) 77 10/26/2024 1:07 PM Samantha Shane RN * Andrew Fall Risk Question Answer Date of Assessment Author History of Falling 0 10/26/2024 11:36 AM CS Latricia Peterson RN Secondary Diagnosis 0 10/26/2024 11:36 AM Latricia Peña RN Ambulatory Aids 0 10/26/2024 11:36 AM Latricia Tatum RN Intravenous Therapy/Heparin/Saline Lock 20 10/26/2024 11:36 AM Martha Bailon RN Gait/Transferring 0 10/26/2024 11:36 AM Latricia Bailon RN Mental Status 0 10/26/2024 11:36 AM Latricia Ramos RN Andrew Fall Risk Score (Score >= 45 places fall precaution order) 20 10/26/2024 11:36 AM Latricia Bailon Ma, RN Prior Fall Event (Autopopulated from EMR) None found 10/26/2024 11:36 AM Keira Bailon RN * Alcohol Use Question Answer Date of Assessment Author Q1: How often do you have a drink containing alcohol? Never 10/26/2024 11:39 AM Noemy Bailon RN * Integumentary Question Answer Date of Assessment Author Integumentary (WDL) WDL 10/26/2024 11:36 AM Latricia Peña RN documented as of this encounter Plan of Treatment Scheduled Procedures Name Priority Associated Diagnoses Date/Ti la ESOPHAGOGASTRODUODENOSCOPY Open Access Hiatal hernia with GERD documented as of this encounter Visit Diagnoses Not on filedocumented in this encounter Care Teams Flexo Operator Relationship Specialty Start Date End Date Naila Sinha MD PCP - General Family Medicine 01/26/22 Elsi Hernandez MD PhD [address] [facility] [address] [place] [address] Radiation Oncologist Radiation Oncology 07/19/23 Mercedes Miranda MD [address] [facility] [address] [place] [address] Consulting Physician Radiation Oncology 12/13/23 documented as of this encounter
--- OUTSIDE RECORDS SUMMARY | 2025-08-16 08:05 | XMS_ITS | Encounter Summary ---
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 Gender Identity Not on file [...] Body Mass Index 40.14 10/28/2023 8:03 AM HEATER OPERATOR HELPER documented in this encounter Plan of Treatment Scheduled Procedures Name Priority Associated Diagnoses Date/Ti me ESOPHAGOGASTRODUODENOSCOPY Open Access Hiatal hernia with GERD documented as of this encounter Visit Diagnoses Not on filedocumented in this encounter Care Teams Health Care Liaison Relationship Specialty Start Date End Date Naila Sinha MD PCP - General Family Medicine 01/26/22 Elsi Hernandez MD PhD [address] [place] [address] Radiation Oncologist Radiation Oncology 07/19/23 Mecredes Miranda MD [address] [facility] [address] [place] [address] Consulting Physician Radiation Oncology 12/13/23 documented as of this encounter
[2025-08-16 11:11] LABS: Hematocrit 46.2 % (37.0-47.0); Hemoglobin 15.0 g/dL (12.0-15.0); Immature Granulocyte Percent A 0.2 % (0-0.5); Lymphocytes Absolute Auto 0.94 K/mm3 (0.9-3.2); Mean Corpuscular HGB Conc 32.5 g/dl (32-36); Mean Corpuscular Hemoglobin 30.4 pg (26-34); Mean Corpuscular Volume 93.5 fl (80-100); Nucleated Red Blood Cells Absolute Auto 0.000 K/mm3 (0.0-0.012); Nucleated Red Blood Cells Perc 0.0 % (0.0-0.2); Platelet Count Result 248 k/mm3 (150-375); Red Blood Count 4.94 M/mm3 (4.2-5.4); White Blood Count 5.2 K/mm3 (4.5-10.0)
[2025-08-16 11:23] LABS: INR 1.0; Prothrombin Time 13.2 Seconds (11.1-14.7)
[2025-08-16 11:24] LABS: Partial Thromboplastin Time 27.7 Seconds (22.3-36.8)
== END 2025-08-16 08:03 | disposition home or self-care (01) ==
LOC: ANHGOSHLAB 08:03
PROVIDERS: PCP Physician Assistant
DX: C54.1 Malignant neoplasm of endometrium (principal); Z01.812 Encounter for preprocedural laboratory examination
CPT/HCPCS: 36415; 85025; 85610; 85730; 86304